=== PATIENT | female | born 1945 | race Caucasian/White ===

== ENCOUNTER 2016-06-15 16:26 | Emergency (ER) | payer MEDICARE, OTHER ==
[~2016-06-15 16:26] MED LIST: ADVI200C5 PO; ATEN50TA2 PO; DOXY20TA4 PO; PANT20TA PO; VITA400C29 PO; VITA500C24 PO
--- NOTE | 2016-06-15 17:37 | REP ---
Chest one-view HISTORY: Chest pain Comparison: 11/10/2012 The lungs are clear. The heart is normal in size. The pulmonary vasculature is normal in appearance. Impression: No acute disease. Signed by Bandar Parekh MD 06/15/2016 05:27 P
[2016-06-15 18:23] LABS: ANION GAP 8 MEQ/L (8-16); BLOOD UREA NITROGEN 17 MG/DL (7-18); CALCIUM LEVEL 8.7 MG/DL (8.8-10.2); CARBON DIOXIDE LEVEL 28 MEQ/L (21-32); CHLORIDE LEVEL 105 MEQ/L (98-107); GLOMERULAR FILTRATION RATE > 60.0 (>39); GLUCOSE, FASTING 111 MG/DL (83-110); POTASSIUM SERUM 3.8 MEQ/L (3.5-5.1); SODIUM LEVEL 141 MEQ/L (136-145)
[2016-06-15 18:33] LABS: BASO % 0.3 % (0.0-1.0); EOS # 0.1 K/mm3 (0.0-0.50); EOS % 1.1 % (0.0-3.0); LARGE UNSTAINED CELL # 0.1 K/mm3 (0.0-0.4); LARGE UNSTAINED CELL % 0.6 % (0.0-4.0); LYMPH # 1.5 K/mm3 (1.5-4.5); LYMPH % 13.1 % (24.0-44.0); MEAN CORPUSCULAR HEMOGLOBIN 28.5 pg (27.0-33.0); MEAN CORPUSCULAR HGB CONC 33.9 g/dl (32.0-36.5); MEAN CORPUSCULAR VOLUME 84.2 fl (80.0-96.0); MONO # 0.4 K/mm3 (0.0-0.8); MONO % 3.4 % (0.0-5.0); NEUTROPHILS # 9.3 K/mm3 (1.8-7.7); NEUTROPHILS % 81.5 % (36.0-66.0); PLATELET COUNT, AUTOMATED 238 k/mm3 (150-450); RED CELL DISTRIBUTION WIDTH 12.2 % (11.5-14.5); WHITE BLOOD COUNT 11.4 K/mm3 (4.0-10.0)
[2016-06-15] MEDS ORDERED: KETOROLAC 30 MG/ML VIAL (J1885) As Ordered ONE (19:10)
--- NOTE | 2016-06-15 22:54 | EDDOCDS ---
Physician Documentation [facility] Name: Ramila Coppola Age: 71 yrs Sex: Female : 1945 Arrival Date: 06/15/2016 Time: 16:26 Bed 8 Private MD: Ricky Cueto Disposition: 06/15 22:37 Critical Care: Critical care not applicable. Disposition: 06/15/16 22:38 Discharged to Home/Self Care. Impression: Chest pain, unspecified. - Condition is Stable. - Discharge Instructions: Nonspecific Chest Pain. - Medication Reconciliation, Local Pharmacy Hours form. - Follow up: Ricky Cueto MD; When: Call to arrange an appointment; Reason: Continuance of care. - Problem is new. - Symptoms have improved. Historical: - Allergies: PENICILLINS (Rash); Tramadol HCl (Vomit); Darvon (Vomit); Morphine (Vomit); Dilaudid (Vomit); - Home Meds: 1. aspirin 81 mg Oral tab 1 tab once daily 2. atenolol 50 mg Oral tab 1 tab 2 times per day - PMHx: Hypercholesterolemia; Hypertension; - PSHx: Cervical Fusion; Left Heart Cath 2015 w/o intervention; - Social history: Smoking status: Patient states was never smoker of tobacco. No barriers to communication noted, The patient speaks fluent French, Speaks appropriately for age. - Family history: Not pertinent. - : The pt / caregiver states he / she is not on anticoagulants. Home medication list is obtained from the patient. - Exposure Risk Screening:: None identified. Vital Signs: 16:28 BP 206 / 91 LA Sitting (auto/reg); Pulse 56; Resp 16; Temp 96.9; Pulse Ox 100% ; Weight cmb 74.84 kg / 164.99 lbs; Height 5 ft. 9 in. (175.26 cm); Pain 5/10; 16:28 BP 169 / 84 RA Sitting (auto/reg); cmb 17:40 BP 160 / 94 (auto/); jc4 17:40 Pulse 56 MON; Pulse Ox 96% ; jc4 17:55 BP 171 / 79 (auto/); jc4 17:55 Pulse 56 MON; Pulse Ox 95% ; jc4 18:00 BP 168 / 81 (auto/); jc4 18:00 Pulse 56 MON; Pulse Ox 97% ; jc4 18:10 BP 154 / 81 (auto/); jc4 18:10 Pulse 54 MON; Pulse Ox 96% ; jc4 18:25 BP 145 / 77 (auto/); jc4 18:25 Pulse 54 MON; Pulse Ox 96% ; jc4 18:40 BP 198 / 80 (auto/); jc4 18:41 Pulse 58 MON; Pulse Ox 99% ; jc4 18:55 BP 150 / 68 (auto/); jc4 18:55 Pulse 58 MON; Pulse Ox 95% ; jc4 19:25 BP 194 / 84 (auto/); ko2 19:25 Pulse 60 MON; ko2 19:40 BP 141 / 65 (auto/); ko2 19:40 Pulse 64 MON; ko2 19:55 BP 150 / 72 (auto/); ko2 19:55 Pulse 60 MON; ko2 20:02 Pulse 62 MON; ko2 20:10 BP 144 / 68 (auto/); ko2 20:25 BP 132 / 72 (auto/); ko2 20:31 Pulse 60 MON; Pulse Ox 95% ; ko2 20:40 BP 137 / 69 (auto/); ko2 20:41 Pulse 62 MON; Pulse Ox 95% ; ko2 20:55 BP 161 / 76 (auto/); ko2 20:55 Pulse 62 MON; Pulse Ox 95% ; ko2 21:09 Pulse 62 MON; Pulse Ox 97% ; ko2 21:10 BP 151 / 77 (auto/); ko2 22:41 BP 169 / 77; Pulse 65; Resp 18; Temp 98.4(TE); Pulse Ox 96% on R/A; Pain 0/10; vicente 16:28 Body Mass Index 24.37 (74.84 kg, 175.26 cm) cmb MDM: 17:02 Airplane Flight Attendant Supervisor/Pulse Ox/q 30 min VS ordered. sd1 17:02 IV Saline Lock ordered. sd1 17:02 Rhythm Strip to chart ordered. sd1 17:02 Undress patient appropriately for examination ordered. sd1 17:03 Basic Metabolic Profile Ordered. EDMS 17:03 CBC with Diff Ordered. EDMS 17:03 Cardiac Injury Profile Ordered. EDMS 17:03 Troponin Ordered. EDMS 17:04 portable chest Ordered. EDMS 17:04 ECG WITH READING ER PHYS+CARDIAG ordered. EDMS 17:44 Misc Head Of Biology Order ordered. bs6 17:44 Repeat EKG (put time details section) ordered. bs6 17:54 Misc Head Of Biology Order complete. lbd 17:55 Repeat EKG (put time details section) complete. lbd 17:55 REGULAR+DIET ordered. EDMS 17:59 ECG WITH READING ER PHYS ordered. EDMS 17:59 CARDIAC MARKER PANEL Ordered. EDMS 18:40 ketorolac 30 mg IVP once ordered. bs6 19:31 Financial registration complete. gjb 21:01 Urine Dip ordered. jul 03:52 Test interpretation: EKG. pc 22:31 Basic Metabolic Profile Reviewed. pc 22:31 CBC with Diff Reviewed. pc 22:31 Cardiac Injury Profile Reviewed. pc 22:31 Troponin Reviewed. pc 22:31 CARDIAC MARKER PANEL Reviewed. pc 22:31 portable chest Reviewed. pc 22:37 Data reviewed: EKG(s), lab test results. Test interpretation: LAB - all labs as ordered pc have been reviewed, interpreted and considered in the overall management of the clinical presentation;. The patient has been re-examined and re-evaluated. The patient's symptoms have resolved after treatment. Disposition: The historical points, examination findings, and any diagnostic results supporting the provided diagnosis, were discussed with the patient or legal guardian. The need for outpatient follow up with the provider listed on their discharge instructions was discussed. They were encouraged to return to [facility], or the nearest ED, if symptoms worsen/persist, or for any other questions/concerns. EC:52 Rate is 60 beats/min. Rhythm is regular, Normal Sinus Rhythm. QRS [place] is Normal. [place] pc interval is normal. QRS interval is normal. QT interval is normal. No Q waves. T waves are Normal. No ST changes noted. Clinical impression: Normal Sinus Rhythm. Point of Care Testing: Urine Dip: 21:06 pH: 6; ; Specific [place]: 1.015; Ketones: Trace; Glucose: 50 mg/dL; Protein: Trace; ko2 Leukocytes: Negative; Nitrite: Negative ; Blood: Small (+); Bilirubin: Negative ; Urobilinogen: Normal Ranges: Administered Medications: 19:19 Drug: ketorolac 30 mg [ketorolac 30 mg/mL (1 mL) injection solution (1 mL)] Route: IVP; ko2 Site: right antecubital; Signatures: Dispatcher [employer] Melo Roth MD MD pc Delaney-Rowland, Sarah, MD MD sd1 Lindsey Sow, Aeronautical Engineering Officer Unit lbd Mathew Orellana RN RN bcj Pete, DOLORES Bell RN, Jennifer, RN RN jc4 Tri Antonio DO DO bs6 Maria Luisa Anderson RN RN prashant2 Callie Ho MTDD
--- NOTE | 2016-06-15 22:55 | EDDOCDS ---
Nurse's Notes [facility] Name: Ramila Coppola Age: 71 yrs Sex: Female : 1945 Arrival Date: 06/15/2016 Time: 16:26 Bed 8 Private MD: Ricky Cueto Diagnosis: Chest pain, unspecified Presentation: 06/15 17:00 Presenting complaint: Patient states: has been feeling dizzy all day - feels like she bcj is going to fall over. no nausea now - was nauseated earlier. having chest tightness and neck tightness. denies diff breathing. 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 Adult Sepsis Screening: The patient does not have new or worsening altered mentation. Patient's respiratory rate is less than 22. Systolic blood pressure is greater than 100. Patient has a qSOFA score of 0- Negative Sepsis Screen. Suicide/Homicide risk assessment- the patient denies having any suicidal and/or homicidal ideations and does not present with any other emotional, behavioral or mental health complaints. Status: Patient is not a director of professional services or dependent. Transition of care: patient was not received from another setting of care. Red Flag criteria, patient assessed and taken directly to a bed. 17:00 Acuity: ROLANDO Level 2 bcj 17:00 Method Of Arrival: Walkin/Carried/Asstd bcj Triage Assessment: 17:05 General: Appears in no apparent distress, comfortable, Behavior is cooperative. Pain: bcj Location: chest Pain currently is 5 out of 10 on a pain scale. Cardiovascular: Chest pain is described as mild, radiates to left arm(s) episodes last > 5 minutes began. Derm: Skin is pink, warm & dry. Historical: - Allergies: PENICILLINS (Rash); Tramadol HCl (Vomit); Darvon (Vomit); Morphine (Vomit); Dilaudid (Vomit); - Home Meds: 1. aspirin 81 mg Oral tab 1 tab once daily 2. atenolol 50 mg Oral tab 1 tab 2 times per day - PMHx: Hypercholesterolemia; Hypertension; - PSHx: Cervical Fusion; Left Heart Cath 2016 w/o intervention; - Social history: Smoking status: Patient states was never smoker of tobacco. No barriers to communication noted, The patient speaks fluent Kyrgyz, Speaks appropriately for age. - Family history: Not pertinent. - : The pt / caregiver states he / she is not on anticoagulants. Home medication list is obtained from the patient. - Exposure Risk Screening:: None identified. Screenin:58 Screening information is obtained from the patient. Fall risk: No risks identified. jc4 Assistance ADL's: requires no assistance with activities of daily living. Abuse/DV Screen: The patient / caregiver reports he/she is: not in a situation that causes fear, pain or injury. Nutritional screening: No deficits noted. Advance Directives: Currently, there is a health care proxy, Sravanthi Rose. There is no active DNR order. There is an active Power of Translational Specialist, Sravanthi Rose, daughter. home support is adequate. Assessment: 18:02 General: Appears in no apparent distress, Behavior is cooperative, pleasant. Pain: jc4 Denies pain. Neurological: Level of Consciousness is awake, alert, Oriented to person, place, time, Reports dizziness, headache. EENT: Oral mucosa is moist. Cardiovascular: Rhythm is sinus bradycardia No ectopy. Chest pain is described as Pain is 5 out of 10 on a pain scale. quality is tightness is located in substernal area radiates Does not radiate. episodes are intermittent. Cardiovascular: Edema is absent. Respiratory: Airway is patent Respiratory effort is even, unlabored, Respiratory pattern is regular, symmetrical, Breath sounds are clear bilaterally. GI: Abdomen is non- distended Bowel sounds present X 4 quads. Abd is soft and non tender X 4 quads. Denies nausea. Derm: Skin is pink, warm & dry. 19:20 General: Appears in no apparent distress, comfortable, Behavior is appropriate for age, ko2 cooperative. Pain: Denies pain. Neurological: Level of Consciousness is awake, alert. Respiratory: Airway is patent Respiratory effort is even, unlabored. Derm: Skin is pink, warm & dry. 20:43 General: Appears in no apparent distress, comfortable, Behavior is appropriate for age, ko2 cooperative. Pain: Location: abdomen. Neurological: Level of Consciousness is awake, alert. Respiratory: Airway is patent Respiratory effort is even, unlabored. Derm: Skin is pink, warm & dry. 22:00 General: Appears in no apparent distress, comfortable, Behavior is appropriate for age, ko2 cooperative. Pain: Denies pain. Neurological: Level of Consciousness is awake, alert, Oriented to person, place, time. Respiratory: Airway is patent Respiratory effort is even, unlabored. Derm: Skin is pink, warm & dry. 22:51 General: Appears in no apparent distress, comfortable, Behavior is appropriate for age, ko2 cooperative. Neurological: Level of Consciousness is awake, alert, Oriented to. Respiratory: Airway is patent Respiratory effort is even, unlabored. Derm: Skin is pink, warm & dry. Vital Signs: 16:28 BP 206 / 91 LA Sitting (auto/reg); Pulse 56; Resp 16; Temp 96.9; Pulse Ox 100% ; Weight cmb 74.84 kg; Height 5 ft. 9 in. (175.26 cm); Pain 5/10; 16:28 BP 169 / 84 RA Sitting (auto/reg); cmb 17:40 BP 160 / 94 (auto/); jc4 17:40 Pulse 56 MON; Pulse Ox 96% ; jc4 17:55 BP 171 / 79 (auto/); jc4 17:55 Pulse 56 MON; Pulse Ox 95% ; jc4 18:00 BP 168 / 81 (auto/); jc4 18:00 Pulse 56 MON; Pulse Ox 97% ; jc4 18:10 BP 154 / 81 (auto/); jc4 18:10 Pulse 54 MON; Pulse Ox 96% ; jc4 18:25 BP 145 / 77 (auto/); jc4 18:25 Pulse 54 MON; Pulse Ox 96% ; jc4 18:40 BP 198 / 80 (auto/); jc4 18:41 Pulse 58 MON; Pulse Ox 99% ; jc4 18:55 BP 150 / 68 (auto/); jc4 18:55 Pulse 58 MON; Pulse Ox 95% ; jc4 19:25 BP 194 / 84 (auto/); ko2 19:25 Pulse 60 MON; ko2 19:40 BP 141 / 65 (auto/); ko2 19:40 Pulse 64 MON; ko2 19:55 BP 150 / 72 (auto/); ko2 19:55 Pulse 60 MON; ko2 20:02 Pulse 62 MON; ko2 20:10 BP 144 / 68 (auto/); ko2 20:25 BP 132 / 72 (auto/); ko2 20:31 Pulse 60 MON; Pulse Ox 95% ; ko2 20:40 BP 137 / 69 (auto/); ko2 20:41 Pulse 62 MON; Pulse Ox 95% ; ko2 20:55 BP 161 / 76 (auto/); ko2 20:55 Pulse 62 MON; Pulse Ox 95% ; ko2 21:09 Pulse 62 MON; Pulse Ox 97% ; ko2 21:10 BP 151 / 77 (auto/); ko2 22:41 BP 169 / 77; Pulse 65; Resp 18; Temp 98.4(TE); Pulse Ox 96% on R/A; Pain 0/10; vicente 16:28 Body Mass Index 24.37 (74.84 kg, 175.26 cm) cmb Vitals: 16:28 Log In Time: June 15, 2016 at 16:26. cmb ED Course: 16:27 Patient visited by Hanna Hu. cmb 16:27 Ricky Cueto is Private Physician. cmb 16:27 Patient moved to Waiting cmb 16:31 Patient moved to Pre RCE cmb 17:00 Ayana Rangel, DOLORES is Primary Nurse. js13 17:00 Patient moved to 8 js13 17:03 Triage Initiated bcj 17:06 Patient visited by Mathew Orellana, DOLORES. bcj 17:18 Tri Antonio DO is PHCP. bs6 17:18 Tre Dia DO is Attending Physician. bs6 17:24 Patient visited by Tri Antonio DO. bs6 17:24 Patient visited by Tri Antonio DO. bs6 17:27 Patient visited by Jenniffer Ha. dem1 17:27 Pt greeted and oriented to ED. Patient advised of names of staff involved in care, [facility] location of call [place], wait times and NPO status. Patient has correct armband on for positive identification. Placed in gown. Bed in low position. Call light in reach. Side rails up X 1. boilermaker central steam plant on. Pulse ox on. NIBP on. 17:27 EKG done. (by ED staff). Reviewed by Tri Antonio DO. dem1 17:54 Basic Metabolic Profile Sent. jc4 17:54 CBC with Diff Sent. jc4 17:54 Cardiac Injury Profile Sent. jc4 17:54 Troponin Sent. jc4 17:59 The patient / caregiver is instructed regarding the plan of care and ED course. jc4 17:59 Inserted saline lock: 20 gauge in right antecubital area The patient tolerated the jc4 procedure well. 18:06 Patient visited by Ayana Rangel RN. jc4 18:10 portable chest Returned. EDMS 19:02 Primary Nurse role handed off by Ayana Rangel RN jc4 19:03 Attending Physician role handed off by Tre Dia DO pc 19:03 Melo Vergara MD is Attending Physician. pc 19:03 Patient visited by Melo Vergara MD. pc 19:06 Maria Luisa Anderson RN is Primary Nurse. ko2 19:19 Patient visited by Maria Luisa Anderson RN. ko2 20:12 Patient visited by Maria Luisa Anderson RN. ko2 20:43 Patient visited by Maria Luisa Anderson RN. ko2 20:44 Patient visited by Maria Luisa Anderson RN. ko2 21:43 Patient visited by Maria Luisa Anderson RN. ko2 21:52 Patient visited by Velia Mack PCA. vicente 21:52 CARDIAC MARKER PANEL Sent. vicente 21:52 EKG done. (by ED staff). Reviewed by Melo Vergara MD. vicente 22:38 Ricky Cueto MD is Referral Physician. pc 22:41 Patient visited by Velia Mack PCA. ivcente 22:52 Discontinued lock intact, bleeding controlled, pressure dressing applied, No ko2 redness/swelling at site. No procedures done that require assistance. Administered Medications: 19:19 Drug: ketorolac 30 mg [ketorolac 30 mg/mL (1 mL) injection solution (1 mL)] Route: IVP; ko2 Site: right antecubital; Point of Care Testing: Urine Dip: 21:06 pH: 6; ; Specific [place]: 1.015; Ketones: Trace; Glucose: 50 mg/dL; Protein: Trace; ko2 Leukocytes: Negative; Nitrite: Negative ; Blood: Small (+); Bilirubin: Negative ; Urobilinogen: Normal Ranges: Order Results: Lab Order: Basic Metabolic Profile; SPEC'M 06/15/16 17:52 Test: GLUCOSE, FASTING; Value: 111; Range: 83-110; Abnormal: Above high normal; Units: MG/DL; Status: F Test: BLOOD UREA NITROGEN; Value: 17; Range: 7-18; Units: MG/DL; Status: F Test: CREATININE FOR GFR; Value: 0.80; Range: 0.55-1.02; Units: MG/DL; Status: F Test: GLOMERULAR FILTRATION RATE; Value: > 60.0; Range: >39; Status: F Test: SODIUM LEVEL; Value: 141; Range: 136-145; Units: MEQ/L; Status: F Test: POTASSIUM SERUM; Value: 3.8; Range: 3.5-5.1; Units: MEQ/L; Status: F Test: CHLORIDE LEVEL; Value: 105; Range: 98-107; Units: MEQ/L; Status: F Test: CARBON DIOXIDE LEVEL; Value: 28; Range: 21-32; Units: MEQ/L; Status: F Test: ANION GAP; Value: 8; Range: 8-16; Units: MEQ/L; Status: F Test: CALCIUM LEVEL; Value: 8.7; Range: 8.8-10.2; Abnormal: Below low normal; Units: MG/DL; Status: F Test Note: ; Units are mL/min/1.73 m2 Chronic Kidney Disease Staging per NKF: Stage I & II GFR >=60 Normal to Mildly Decreased Stage III GFR 30-59 Moderately Decreased Stage IV GFR 15-29 Severely Decreased Stage V GFR <15 Very Little GFR Left ESRD GFR <15 on OVER SHORT AND DAMAGE CLERK Lab Order: CBC with Diff; SPEC'M 06/15/16 17:52 Test: WHITE BLOOD COUNT; Value: 11.4; Range: 4.0-10.0; Abnormal: Above high normal; Units: K/mm3; Status: F Test: RED BLOOD COUNT; Value: 4.20; Range: 4.00-5.40; Units: M/mm3; Status: F Test: HEMOGLOBIN; Value: 12.0; Range: 12.0-16.0; Units: g/dl; Status: F Test: HEMATOCRIT; Value: 35.4; Range: 36.0-47.0; Abnormal: Below low normal; Units: %; Status: F Test: MEAN CORPUSCULAR VOLUME; Value: 84.2; Range: 80.0-96.0; Units: fl; Status: F Test: MEAN CORPUSCULAR HEMOGLOBIN; Value: 28.5; Range: 27.0-33.0; Units: pg; Status: F Test: MEAN CORPUSCULAR HGB CONC; Value: 33.9; Range: 32.0-36.5; Units: g/dl; Status: F Test: RED CELL DISTRIBUTION WIDTH; Value: 12.2; Range: 11.5-14.5; Units: %; Status: F Test: PLATELET COUNT, AUTOMATED; Value: 238; Range: 150-450; Units: k/mm3; Status: F Test: NEUTROPHILS %; Value: 81.5; Range: 36.0-66.0; Abnormal: Above high normal; Units: %; Status: F Test: LYMPH %; Value: 13.1; Range: 24.0-44.0; Abnormal: Below low normal; Units: %; Status: F Test: MONO %; Value: 3.4; Range: 0.0-5.0; Units: %; Status: F Test: EOS %; Value: 1.1; Range: 0.0-3.0; Units: %; Status: F Test: BASO %; Value: 0.3; Range: 0.0-1.0; Units: %; Status: F Test: LARGE UNSTAINED CELL %; Value: 0.6; Range: 0.0-4.0; Units: %; Status: F Test: NEUTROPHILS #; Value: 9.3; Range: 1.8-7.7; Abnormal: Above high normal; Units: K/mm3; Status: F Test: LYMPH #; Value: 1.5; Range: 1.5-4.5; Units: K/mm3; Status: F Test: MONO #; Value: 0.4; Range: 0.0-0.8; Units: K/mm3; Status: F Test: EOS #; Value: 0.1; Range: 0.0-0.50; Units: K/mm3; Status: F Test: BASO #; Value: 0.0; Range: 0.0-0.2; Units: K/mm3; Status: F Test: LARGE UNSTAINED CELL #; Value: 0.1; Range: 0.0-0.4; Units: K/mm3; Status: F Lab Order: Cardiac Injury Profile; SPEC'M 06/15/16 17:52 Test: CPK CREATINE PHOSPHOKINASE; Value: 104; Range: 26-192; Units: U/L; Status: F Test: CK-MB VALUE MASS; Value: 1.7; Range: 0.0-3.6; Units: NG/ML; Status: F Test: MB/CK RELATIVE INDEX; Value: 1.63; Range: < OR =4; Status: F Test Note: ; DIAGNOSIS CRITERIA MMB ng/ml Relative Index (RI) NON-AMI < or = 5 N/A KAUFMAN ZONE > 5 < or = 4 AMI > 5 > 4 Lab Order: Troponin; SPEC'M 06/15/16 17:52 Test: TROPONIN I; Value: < 0.02; Range: < 0.10; Units: NG/ML; Status: F Test Note: ; Troponin I Reference Interval for [place] LOCI: 99th Percentile= 0.00-0.045 ng/ml Risk Stratification: <= 0.10 ng/ml Decreased Risk for Adverse Clinical Events. 0.10-1.50 ng/ml Increased Risk for Adverse Clinical Events. Evaluation of additional criterion and/or repeat testing in 2-6 hours is suggested to rule out myocardial damage. >= 1.50 ng/ml Indicative of Myocardial Injury. Lab Order: CARDIAC MARKER PANEL; SPEC'M 06/15/16 21:57 Test: CPK CREATINE PHOSPHOKINASE; Value: 89; Range: 26-192; Units: U/L; Status: F Test: CK-MB VALUE MASS; Value: 1.1; Range: 0.0-3.6; Units: NG/ML; Status: F Test: MB/CK RELATIVE INDEX; Value: 1.23; Range: < OR =4; Status: F Test: TROPONIN I; Value: < 0.02; Range: < 0.10; Units: NG/ML; Status: F Test Note: ; DIAGNOSIS CRITERIA MMB ng/ml Relative Index (RI) NON-AMI < or = 5 N/A KAUFMAN ZONE > 5 < or = 4 AMI > 5 > 4 Radiology Order: portable chest Test: portable chest REASON FOR EXAMINATION: Chest Pain; Chest one-view; ; HISTORY: Chest pain; ; Comparison: 11/10/2012; ; The lungs are clear. The heart is normal in size. The pulmonary vasculature is; normal in appearance.; ; Impression: No acute disease.; ; ; Signed by; Bandar Parekh MD 06/15/2016 05:27 P; Outcome: 22:38 Discharge ordered by Provider. pc 22:52 Discharge Assessment: Patient awake, alert and oriented x 3. No cognitive and/or ko2 functional deficits noted. Patient verbalized understanding of disposition instructions. patient administered narcotics - no. The following High Risk Discharge criteria are identified: None. Discharged to home ambulatory, with family. Condition: stable. Discharge instructions given to patient, Instructed on discharge instructions, follow up and referral plans. Demonstrated understanding of instructions, Pt was receptive of discharge instructions/ teaching. No special radiology studies were completed. Property sent home with patient. 22:54 Patient left the ED. ko2 Signatures: Dispatcher [employer] EDMS Melo Vergara MD MD pc Johnson, Bruce, RN RN Ayana Vlaencia, RN RN jc4 Velia Mack, SPINE NURSE SPINE NURSE Jenniffer Ricci1 Ayana Mcknight,RN RN js13 Hanna Hu Brogan, DO DO bs6 Maria Luisa Anderson,RN RN ko2 MTDD
--- NOTE | 2016-06-16 19:48 | ECGEPIP ---
Stationary ECG Study [facility] - ED Test Date: 2016-06-15 Pat Name: IVY PALACIOS Department: Room: - Gender: F Dressing Room Porter: nancy : 1945 Requested By: Kinsey Mata Order Number: [id number] Reading MD: Kinsey Mata Measurements Intervals [place] Rate: 66 P: 11 CT: 144 QRS: 11 QRSD: 79 T: 25 QT: 411 QTc: 431 Interpretive Statements SINUS RHYTHM SIMILAR 09/10/11 Electronically Signed On 06-16-2016 19:47:45 EST by Kinsey Mata
--- NOTE | 2016-06-16 19:51 | ECGEPIP ---
Stationary ECG Study [facility] - ED Test Date: 2016-06-15 Pat Name: IVY PALACIOS Department: Room: - Gender: F Telemarketer: QuirogaB: 1945 Requested By: ARACELY ARIAS Order Number: [id number] Reading MD: Kinsey Mata Measurements Intervals [place] Rate: 60 P: 0 VA: 120 QRS: 11 QRSD: 92 T: 36 QT: 446 QTc: 449 Interpretive Statements SINUS RHYTHM SIMILAR 06/15/16 17:11 Electronically Signed On 06-16-2016 19:50:50 EST by Kinsey Mata
--- NOTE | 2016-06-17 23:54 | EDDOCDS ---
Physician Documentation [facility] Name: Ramila Coppola Age: 71 yrs Sex: Female : 1945 Arrival Date: 06/15/2016 Time: 16:26 Bed 8 Private MD: Ricky Cueto Disposition: 06/15 22:37 Critical Care: Critical care not applicable. Disposition: 06/15/16 22:38 Discharged to Home/Self Care. Impression: Chest pain, unspecified. - Condition is Stable. - Discharge Instructions: Nonspecific Chest Pain. - Medication Reconciliation, Local Pharmacy Hours form. - Follow up: Ricky Cueto MD; When: Call to arrange an appointment; Reason: Continuance of care. - Problem is new. - Symptoms have improved. Historical: - Allergies: PENICILLINS (Rash); Tramadol HCl (Vomit); Darvon (Vomit); Morphine (Vomit); Dilaudid (Vomit); - Home Meds: 1. aspirin 81 mg Oral tab 1 tab once daily 2. atenolol 50 mg Oral tab 1 tab 2 times per day - PMHx: Hypercholesterolemia; Hypertension; - PSHx: Cervical Fusion; Left Heart Cath 2015 w/o intervention; - Social history: Smoking status: Patient states was never smoker of tobacco. No barriers to communication noted, The patient speaks fluent Lithuanian, Speaks appropriately for age. - Family history: Not pertinent. - : The pt / caregiver states he / she is not on anticoagulants. Home medication list is obtained from the patient. - Exposure Risk Screening:: None identified. Vital Signs: 16:28 BP 206 / 91 LA Sitting (auto/reg); Pulse 56; Resp 16; Temp 96.9; Pulse Ox 100% ; Weight cmb 74.84 kg / 164.99 lbs; Height 5 ft. 9 in. (175.26 cm); Pain 5/10; 16:28 BP 169 / 84 RA Sitting (auto/reg); cmb 17:40 BP 160 / 94 (auto/); jc4 17:40 Pulse 56 MON; Pulse Ox 96% ; jc4 17:55 BP 171 / 79 (auto/); jc4 17:55 Pulse 56 MON; Pulse Ox 95% ; jc4 18:00 BP 168 / 81 (auto/); jc4 18:00 Pulse 56 MON; Pulse Ox 97% ; jc4 18:10 BP 154 / 81 (auto/); jc4 18:10 Pulse 54 MON; Pulse Ox 96% ; jc4 18:25 BP 145 / 77 (auto/); jc4 18:25 Pulse 54 MON; Pulse Ox 96% ; jc4 18:40 BP 198 / 80 (auto/); jc4 18:41 Pulse 58 MON; Pulse Ox 99% ; jc4 18:55 BP 150 / 68 (auto/); jc4 18:55 Pulse 58 MON; Pulse Ox 95% ; jc4 19:25 BP 194 / 84 (auto/); ko2 19:25 Pulse 60 MON; ko2 19:40 BP 141 / 65 (auto/); ko2 19:40 Pulse 64 MON; ko2 19:55 BP 150 / 72 (auto/); ko2 19:55 Pulse 60 MON; ko2 20:02 Pulse 62 MON; ko2 20:10 BP 144 / 68 (auto/); ko2 20:25 BP 132 / 72 (auto/); ko2 20:31 Pulse 60 MON; Pulse Ox 95% ; ko2 20:40 BP 137 / 69 (auto/); ko2 20:41 Pulse 62 MON; Pulse Ox 95% ; ko2 20:55 BP 161 / 76 (auto/); ko2 20:55 Pulse 62 MON; Pulse Ox 95% ; ko2 21:09 Pulse 62 MON; Pulse Ox 97% ; ko2 21:10 BP 151 / 77 (auto/); ko2 22:41 BP 169 / 77; Pulse 65; Resp 18; Temp 98.4(TE); Pulse Ox 96% on R/A; Pain 0/10; vicente 16:28 Body Mass Index 24.37 (74.84 kg, 175.26 cm) cmb MDM: 17:02 Marine Consultant/Pulse Ox/q 30 min VS ordered. sd1 17:02 IV Saline Lock ordered. sd1 17:02 Rhythm Strip to chart ordered. sd1 17:02 Undress patient appropriately for examination ordered. sd1 17:03 Basic Metabolic Profile Ordered. EDMS 17:03 CBC with Diff Ordered. EDMS 17:03 Cardiac Injury Profile Ordered. EDMS 17:03 Troponin Ordered. EDMS 17:04 portable chest Ordered. EDMS 17:04 ECG WITH READING ER PHYS+CARDIAG ordered. EDMS 17:44 Misc Certified Art Therapist Order ordered. bs6 17:44 Repeat EKG (put time details section) ordered. bs6 17:54 Misc Certified Art Therapist Order complete. lbd 17:55 Repeat EKG (put time details section) complete. lbd 17:55 REGULAR+DIET ordered. EDMS 17:59 ECG WITH READING ER PHYS ordered. EDMS 17:59 CARDIAC MARKER PANEL Ordered. EDMS 18:40 ketorolac 30 mg IVP once ordered. bs6 19:31 Financial registration complete. gjb 21:01 Urine Dip ordered. jul 03:52 Test interpretation: EKG. pc 22:31 Basic Metabolic Profile Reviewed. pc 22:31 CBC with Diff Reviewed. pc 22:31 Cardiac Injury Profile Reviewed. pc 22:31 Troponin Reviewed. pc 22:31 CARDIAC MARKER PANEL Reviewed. pc 22:31 portable chest Reviewed. pc 22:37 Data reviewed: EKG(s), lab test results. Test interpretation: LAB - all labs as ordered pc have been reviewed, interpreted and considered in the overall management of the clinical presentation;. The patient has been re-examined and re-evaluated. The patient's symptoms have resolved after treatment. Disposition: The historical points, examination findings, and any diagnostic results supporting the provided diagnosis, were discussed with the patient or legal guardian. The need for outpatient follow up with the provider listed on their discharge instructions was discussed. They were encouraged to return to [facility], or the nearest ED, if symptoms worsen/persist, or for any other questions/concerns. 06/16 00:12 [facility] [place] was scanned into [employer] and attached to record. gjb 11:06 T-Sheet-- Draft Copy was scanned into [employer] and attached to record. gb 11:06 ECG/EKG was scanned into [employer] and attached to record. gb 11:06 Trend VS was scanned into [employer] and attached to record. gb EC/03 21:52 Rate is 60 beats/min. Rhythm is regular, Normal Sinus Rhythm. QRS [place] is Normal. IA pc interval is normal. QRS interval is normal. QT interval is normal. No Q waves. T waves are Normal. No ST changes noted. Clinical impression: Normal Sinus Rhythm. Point of Care Testing: Urine Dip: 21:06 pH: 6; ; Specific [place]: 1.015; Ketones: Trace; Glucose: 50 mg/dL; Protein: Trace; ko2 Leukocytes: Negative; Nitrite: Negative ; Blood: Small (+); Bilirubin: Negative ; Urobilinogen: Normal Ranges: Administered Medications: 19:19 Drug: ketorolac 30 mg [ketorolac 30 mg/mL (1 mL) injection solution (1 mL)] Route: IVP; ko2 Site: right antecubital; Signatures: Dispatcher [employer] Melo Roth MD MD pc Delaney-Rowland, Sarah, MD MD sd1 Lindsey Sow, Calender Let Off Helper Unit lbd Mathew Orellana, RN RN Lia Alfred, RN RN Summer Cordova, Rafiq Reg Ayana Hernandez, RN RN jc4 Tri Antonio, DO SANCHEZ bs6 Maria Luisa Anderson,RN RN prashant2 Callie Ho The chart was reviewed and I authenticate all verbal orders and agree with the evaluation and treatment provided.Attachments: 06/16 00:12 [facility] [place] Agreement kris 11:06 T-Sheet-- Draft Copy gb 11:06 ECG/EKG Chart Complete MTDD
--- NOTE | 2016-06-17 23:54 | EDDOCDS ---
Nurse's Notes [facility] Name: Ramila Coppola Age: 71 yrs Sex: Female : 1945 Arrival Date: 06/15/2016 Time: 16:26 Bed 8 Private MD: Ricky Cueto Diagnosis: Chest pain, unspecified Presentation: 06/15 17:00 Presenting complaint: Patient states: has been feeling dizzy all day - feels like she bcj is going to fall over. no nausea now - was nauseated earlier. having chest tightness and neck tightness. denies diff breathing. 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 Adult Sepsis Screening: The patient does not have new or worsening altered mentation. Patient's respiratory rate is less than 22. Systolic blood pressure is greater than 100. Patient has a qSOFA score of 0- Negative Sepsis Screen. Suicide/Homicide risk assessment- the patient denies having any suicidal and/or homicidal ideations and does not present with any other emotional, behavioral or mental health complaints. Status: Patient is not a office services assistant or dependent. Transition of care: patient was not received from another setting of care. Red Flag criteria, patient assessed and taken directly to a bed. 17:00 Acuity: ROLANDO Level 2 bcj 17:00 Method Of Arrival: Walkin/Carried/Asstd bcj Triage Assessment: 17:05 General: Appears in no apparent distress, comfortable, Behavior is cooperative. Pain: bcj Location: chest Pain currently is 5 out of 10 on a pain scale. Cardiovascular: Chest pain is described as mild, radiates to left arm(s) episodes last > 5 minutes began. Derm: Skin is pink, warm & dry. Historical: - Allergies: PENICILLINS (Rash); Tramadol HCl (Vomit); Darvon (Vomit); Morphine (Vomit); Dilaudid (Vomit); - Home Meds: 1. aspirin 81 mg Oral tab 1 tab once daily 2. atenolol 50 mg Oral tab 1 tab 2 times per day - PMHx: Hypercholesterolemia; Hypertension; - PSHx: Cervical Fusion; Left Heart Cath 2016 w/o intervention; - Social history: Smoking status: Patient states was never smoker of tobacco. No barriers to communication noted, The patient speaks fluent Kosovan, Speaks appropriately for age. - Family history: Not pertinent. - : The pt / caregiver states he / she is not on anticoagulants. Home medication list is obtained from the patient. - Exposure Risk Screening:: None identified. Screenin:58 Screening information is obtained from the patient. Fall risk: No risks identified. jc4 Assistance ADL's: requires no assistance with activities of daily living. Abuse/DV Screen: The patient / caregiver reports he/she is: not in a situation that causes fear, pain or injury. Nutritional screening: No deficits noted. Advance Directives: Currently, there is a health care proxy, Sravanthi Rose. There is no active DNR order. There is an active Power of Spa Consultant, Sravanthi Rose, daughter. home support is adequate. Assessment: 18:02 General: Appears in no apparent distress, Behavior is cooperative, pleasant. Pain: jc4 Denies pain. Neurological: Level of Consciousness is awake, alert, Oriented to person, place, time, Reports dizziness, headache. EENT: Oral mucosa is moist. Cardiovascular: Rhythm is sinus bradycardia No ectopy. Chest pain is described as Pain is 5 out of 10 on a pain scale. quality is tightness is located in substernal area radiates Does not radiate. episodes are intermittent. Cardiovascular: Edema is absent. Respiratory: Airway is patent Respiratory effort is even, unlabored, Respiratory pattern is regular, symmetrical, Breath sounds are clear bilaterally. GI: Abdomen is non- distended Bowel sounds present X 4 quads. Abd is soft and non tender X 4 quads. Denies nausea. Derm: Skin is pink, warm & dry. 19:20 General: Appears in no apparent distress, comfortable, Behavior is appropriate for age, ko2 cooperative. Pain: Denies pain. Neurological: Level of Consciousness is awake, alert. Respiratory: Airway is patent Respiratory effort is even, unlabored. Derm: Skin is pink, warm & dry. 20:43 General: Appears in no apparent distress, comfortable, Behavior is appropriate for age, ko2 cooperative. Pain: Location: abdomen. Neurological: Level of Consciousness is awake, alert. Respiratory: Airway is patent Respiratory effort is even, unlabored. Derm: Skin is pink, warm & dry. 22:00 General: Appears in no apparent distress, comfortable, Behavior is appropriate for age, ko2 cooperative. Pain: Denies pain. Neurological: Level of Consciousness is awake, alert, Oriented to person, place, time. Respiratory: Airway is patent Respiratory effort is even, unlabored. Derm: Skin is pink, warm & dry. 22:51 General: Appears in no apparent distress, comfortable, Behavior is appropriate for age, ko2 cooperative. Neurological: Level of Consciousness is awake, alert, Oriented to. Respiratory: Airway is patent Respiratory effort is even, unlabored. Derm: Skin is pink, warm & dry. Vital Signs: 16:28 BP 206 / 91 LA Sitting (auto/reg); Pulse 56; Resp 16; Temp 96.9; Pulse Ox 100% ; Weight cmb 74.84 kg; Height 5 ft. 9 in. (175.26 cm); Pain 5/10; 16:28 BP 169 / 84 RA Sitting (auto/reg); cmb 17:40 BP 160 / 94 (auto/); jc4 17:40 Pulse 56 MON; Pulse Ox 96% ; jc4 17:55 BP 171 / 79 (auto/); jc4 17:55 Pulse 56 MON; Pulse Ox 95% ; jc4 18:00 BP 168 / 81 (auto/); jc4 18:00 Pulse 56 MON; Pulse Ox 97% ; jc4 18:10 BP 154 / 81 (auto/); jc4 18:10 Pulse 54 MON; Pulse Ox 96% ; jc4 18:25 BP 145 / 77 (auto/); jc4 18:25 Pulse 54 MON; Pulse Ox 96% ; jc4 18:40 BP 198 / 80 (auto/); jc4 18:41 Pulse 58 MON; Pulse Ox 99% ; jc4 18:55 BP 150 / 68 (auto/); jc4 18:55 Pulse 58 MON; Pulse Ox 95% ; jc4 19:25 BP 194 / 84 (auto/); ko2 19:25 Pulse 60 MON; ko2 19:40 BP 141 / 65 (auto/); ko2 19:40 Pulse 64 MON; ko2 19:55 BP 150 / 72 (auto/); ko2 19:55 Pulse 60 MON; ko2 20:02 Pulse 62 MON; ko2 20:10 BP 144 / 68 (auto/); ko2 20:25 BP 132 / 72 (auto/); ko2 20:31 Pulse 60 MON; Pulse Ox 95% ; ko2 20:40 BP 137 / 69 (auto/); ko2 20:41 Pulse 62 MON; Pulse Ox 95% ; ko2 20:55 BP 161 / 76 (auto/); ko2 20:55 Pulse 62 MON; Pulse Ox 95% ; ko2 21:09 Pulse 62 MON; Pulse Ox 97% ; ko2 21:10 BP 151 / 77 (auto/); ko2 22:41 BP 169 / 77; Pulse 65; Resp 18; Temp 98.4(TE); Pulse Ox 96% on R/A; Pain 0/10; vicente 16:28 Body Mass Index 24.37 (74.84 kg, 175.26 cm) cmb Vitals: 16:28 Log In Time: June 15, 2016 at 16:26. cmb ED Course: 16:27 Patient visited by Hanna Hu. cmb 16:27 Ricky Cueto is Private Physician. cmb 16:27 Patient moved to Waiting cmb 16:31 Patient moved to Pre RCE cmb 17:00 Ayana Rangel, DOLORES is Primary Nurse. js13 17:00 Patient moved to 8 js13 17:03 Triage Initiated bcj 17:06 Patient visited by Mathew Orellana, DOLORES. bcj 17:18 Aracely Arias DO is PHCP. bs6 17:18 Tre Dia DO is Attending Physician. bs6 17:24 Patient visited by Aracely Arias DO. bs6 17:24 Patient visited by Aracely Arias DO. bs6 17:27 Patient visited by Jenniffer Ha. dem1 17:27 Pt greeted and oriented to ED. Patient advised of names of staff involved in care, [facility] location of call [place], wait times and NPO status. Patient has correct armband on for positive identification. Placed in gown. Bed in low position. Call light in reach. Side rails up X 1. patient monitor on. Pulse ox on. NIBP on. 17:27 EKG done. (by ED staff). Reviewed by Aracely Arias DO. dem1 17:54 Basic Metabolic Profile Sent. jc4 17:54 CBC with Diff Sent. jc4 17:54 Cardiac Injury Profile Sent. jc4 17:54 Troponin Sent. jc4 17:59 The patient / caregiver is instructed regarding the plan of care and ED course. jc4 17:59 Inserted saline lock: 20 gauge in right antecubital area The patient tolerated the jc4 procedure well. 18:06 Patient visited by Ayana Rangel RN. jc4 18:10 portable chest Returned. EDMS 19:02 Primary Nurse role handed off by Ayana Rangel RN jc4 19:03 Attending Physician role handed off by Tre Dia DO pc 19:03 Melo Vergara MD is Attending Physician. pc 19:03 Patient visited by Melo Vergara MD. pc 19:06 Maria Luisa Anderson RN is Primary Nurse. ko2 19:19 Patient visited by Maria Luisa Anderson RN. ko2 20:12 Patient visited by Maria Luisa Anderson RN. ko2 20:43 Patient visited by Maria Luisa Anderson RN. ko2 20:44 Patient visited by Maria Luisa Anderson RN. ko2 21:43 Patient visited by Maria Luisa Anderson RN. ko2 21:52 Patient visited by Velia Mack PCA. vicente 21:52 CARDIAC MARKER PANEL Sent. vicente 21:52 EKG done. (by ED staff). Reviewed by Melo Vergara MD. vicente 22:38 Ricky Cueto MD is Referral Physician. pc 22:41 Patient visited by Velia Mack PCA. vicente 22:52 Discontinued lock intact, bleeding controlled, pressure dressing applied, No ko2 redness/swelling at site. No procedures done that require assistance. 06/16 00:12 [facility] Payment Agreement was scanned into [employer] and attached to record. gjb 11:06 T-Sheet-- Draft Copy was scanned into [employer] and attached to record. gb 11:06 ECG/EKG was scanned into [employer] and attached to record. gb 11:06 Trend VS was scanned into [employer] and attached to record. gb 20:05 EKG-ADULT Returned. EDMS 20:05 ECG WITH READING ER PHYS Returned. EDMS Administered Medications: 06/15 19:19 Drug: ketorolac 30 mg [ketorolac 30 mg/mL (1 mL) injection solution (1 mL)] Route: IVP; ko2 Site: right antecubital; Attachments: 11:06 Trend VS gb Point of Care Testing: Urine Dip: 06/15 21:06 pH: 6; ; Specific [place]: 1.015; Ketones: Trace; Glucose: 50 mg/dL; Protein: Trace; ko2 Leukocytes: Negative; Nitrite: Negative ; Blood: Small (+); Bilirubin: Negative ; Urobilinogen: Normal Ranges: Order Results: Lab Order: Basic Metabolic Profile; SPEC'M 06/15/16 17:52 Test: GLUCOSE, FASTING; Value: 111; Range: 83-110; Abnormal: Above high normal; Units: MG/DL; Status: F Test: BLOOD UREA NITROGEN; Value: 17; Range: 7-18; Units: MG/DL; Status: F Test: CREATININE FOR GFR; Value: 0.80; Range: 0.55-1.02; Units: MG/DL; Status: F Test: GLOMERULAR FILTRATION RATE; Value: > 60.0; Range: >39; Status: F Test: SODIUM LEVEL; Value: 141; Range: 136-145; Units: MEQ/L; Status: F Test: POTASSIUM SERUM; Value: 3.8; Range: 3.5-5.1; Units: MEQ/L; Status: F Test: CHLORIDE LEVEL; Value: 105; Range: 98-107; Units: MEQ/L; Status: F Test: CARBON DIOXIDE LEVEL; Value: 28; Range: 21-32; Units: MEQ/L; Status: F Test: ANION GAP; Value: 8; Range: 8-16; Units: MEQ/L; Status: F Test: CALCIUM LEVEL; Value: 8.7; Range: 8.8-10.2; Abnormal: Below low normal; Units: MG/DL; Status: F Test Note: ; Units are mL/min/1.73 m2 Chronic Kidney Disease Staging per NKF: Stage I & II GFR >=60 Normal to Mildly Decreased Stage III GFR 30-59 Moderately Decreased Stage IV GFR 15-29 Severely Decreased Stage V GFR <15 Very Little GFR Left ESRD GFR <15 on RADIOLOGY SCHEDULER Lab Order: CBC with Diff; SPEC'M 06/15/16 17:52 Test: WHITE BLOOD COUNT; Value: 11.4; Range: 4.0-10.0; Abnormal: Above high normal; Units: K/mm3; Status: F Test: RED BLOOD COUNT; Value: 4.20; Range: 4.00-5.40; Units: M/mm3; Status: F Test: HEMOGLOBIN; Value: 12.0; Range: 12.0-16.0; Units: g/dl; Status: F Test: HEMATOCRIT; Value: 35.4; Range: 36.0-47.0; Abnormal: Below low normal; Units: %; Status: F Test: MEAN CORPUSCULAR VOLUME; Value: 84.2; Range: 80.0-96.0; Units: fl; Status: F Test: MEAN CORPUSCULAR HEMOGLOBIN; Value: 28.5; Range: 27.0-33.0; Units: pg; Status: F Test: MEAN CORPUSCULAR HGB CONC; Value: 33.9; Range: 32.0-36.5; Units: g/dl; Status: F Test: RED CELL DISTRIBUTION WIDTH; Value: 12.2; Range: 11.5-14.5; Units: %; Status: F Test: PLATELET COUNT, AUTOMATED; Value: 238; Range: 150-450; Units: k/mm3; Status: F Test: NEUTROPHILS %; Value: 81.5; Range: 36.0-66.0; Abnormal: Above high normal; Units: %; Status: F Test: LYMPH %; Value: 13.1; Range: 24.0-44.0; Abnormal: Below low normal; Units: %; Status: F Test: MONO %; Value: 3.4; Range: 0.0-5.0; Units: %; Status: F Test: EOS %; Value: 1.1; Range: 0.0-3.0; Units: %; Status: F Test: BASO %; Value: 0.3; Range: 0.0-1.0; Units: %; Status: F Test: LARGE UNSTAINED CELL %; Value: 0.6; Range: 0.0-4.0; Units: %; Status: F Test: NEUTROPHILS #; Value: 9.3; Range: 1.8-7.7; Abnormal: Above high normal; Units: K/mm3; Status: F Test: LYMPH #; Value: 1.5; Range: 1.5-4.5; Units: K/mm3; Status: F Test: MONO #; Value: 0.4; Range: 0.0-0.8; Units: K/mm3; Status: F Test: EOS #; Value: 0.1; Range: 0.0-0.50; Units: K/mm3; Status: F Test: BASO #; Value: 0.0; Range: 0.0-0.2; Units: K/mm3; Status: F Test: LARGE UNSTAINED CELL #; Value: 0.1; Range: 0.0-0.4; Units: K/mm3; Status: F Lab Order: Cardiac Injury Profile; [facility] 06/15/16 17:52 Test: CPK CREATINE PHOSPHOKINASE; Value: 104; Range: 26-192; Units: U/L; Status: F Test: CK-MB VALUE MASS; Value: 1.7; Range: 0.0-3.6; Units: NG/ML; Status: F Test: MB/CK RELATIVE INDEX; Value: 1.63; Range: < OR =4; Status: F Test Note: ; DIAGNOSIS CRITERIA MMB ng/ml Relative Index (RI) NON-AMI < or = 5 N/A KAUFMAN ZONE > 5 < or = 4 AMI > 5 > 4 Lab Order: Troponin; [facility]' 06/15/16 17:52 Test: TROPONIN I; Value: < 0.02; Range: < 0.10; Units: NG/ML; Status: F Test Note: ; Troponin I Reference Interval for [facility] LOCI: 99th Percentile= 0.00-0.045 ng/ml Risk Stratification: <= 0.10 ng/ml Decreased Risk for Adverse Clinical Events. 0.10-1.50 ng/ml Increased Risk for Adverse Clinical Events. Evaluation of additional criterion and/or repeat testing in 2-6 hours is suggested to rule out myocardial damage. >= 1.50 ng/ml Indicative of Myocardial Injury. Lab Order: CARDIAC MARKER PANEL; [facility] 06/15/16 21:57 Test: CPK CREATINE PHOSPHOKINASE; Value: 89; Range: 26-192; Units: U/L; Status: F Test: CK-MB VALUE MASS; Value: 1.1; Range: 0.0-3.6; Units: NG/ML; Status: F Test: MB/CK RELATIVE INDEX; Value: 1.23; Range: < OR =4; Status: F Test: TROPONIN I; Value: < 0.02; Range: < 0.10; Units: NG/ML; Status: F Test Note: ; DIAGNOSIS CRITERIA MMB ng/ml Relative Index (RI) NON-AMI < or = 5 N/A KAUFMAN ZONE > 5 < or = 4 AMI > 5 > 4 Radiology Order: portable chest Test: portable chest REASON FOR EXAMINATION: Chest Pain; Chest one-view; ; HISTORY: Chest pain; ; Comparison: 11/10/2012; ; The lungs are clear. The heart is normal in size. 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; : 1945 Requested By: Kinsey Mata; Order Number: [id number] Reading MD: Kinsey Mata; Measurements; Intervals [place]; Rate: 66 P: 11; GA: 144 QRS: 11; QRSD: 79 T: 25; QT: 411; QTc: 431; Interpretive Statements; SINUS RHYTHM; SIMILAR 09/10/11; Electronically Signed On 06-16-2016 19:47:45 EST by Kinsey Mata; Radiology Order: ECG WITH READING ER PHYS Test: ECG WITH READING ER PHYS REASON FOR EXAMINATION: CHEST TIGHTNESS (REPEAT EKG AT 2145); Stationary ECG Study; [facility] ED; ; Test Date: 2016-06-15; Pat Name: RAMILA COPPOLA Department:; Room: -; Gender: F English As A Second Language Teacher: mechelle; : 1945 Requested By: ARACELY ARIAS; Order Number: [id number] Reading MD: Kinsey Mata; Measurements; Intervals [place]; Rate: 60 P: 0; GA: 120 QRS: 11; QRSD: 92 T: 36; QT: 446; QTc: 449; Interpretive Statements; SINUS RHYTHM; SIMILAR 06/15/16 17:11; Electronically Signed On 06-16-2016 19:50:50 EST by Kinsey Mata; Outcome: 22:38 Discharge ordered by Provider. pc 22:52 Discharge Assessment: Patient awake, alert and oriented x 3. No cognitive and/or ko2 functional deficits noted. Patient verbalized understanding of disposition instructions. patient administered narcotics - no. The following High Risk Discharge criteria are identified: None. Discharged to home ambulatory, with family. Condition: stable. Discharge instructions given to patient, Instructed on discharge instructions, follow up and referral plans. Demonstrated understanding of instructions, Pt was receptive of discharge instructions/ teaching. No special radiology studies were completed. Property sent home with patient. 22:54 Patient left the ED. ko2 Signatures: Dispatcher [employer] EDMS Melo Vergara MD MD pc Johnson, Bruce, RN RN Summer Palomino, Reg Reg Ayana Hernandez, RN RN jc4 Velia Mack, ENROLLMENT MANAGEMENT COORDINATOR ENROLLMENT MANAGEMENT COORDINATOR vicente Leland, Jenniffer dem1 Ayana Mcknight,RN RN js13 Hanna Hu Brogan, DO bs6 Maria Luisa Anderson RN RN prashant2 Callie Ho Chart Complete MTDD
--- NOTE | 2016-06-17 23:54 | EDDOCDS ---
Physician Documentation [facility] Name: Ramila Coppola Age: 71 yrs Sex: Female : 1945 Arrival Date: 06/15/2016 Time: 16:26 Bed 8 Private MD: Ricky Cueto Disposition: 06/15 22:37 Critical Care: Critical care not applicable. Disposition: 06/15/16 22:38 Discharged to Home/Self Care. Impression: Chest pain, unspecified. - Condition is Stable. - Discharge Instructions: Nonspecific Chest Pain. - Medication Reconciliation, Local Pharmacy Hours form. - Follow up: Ricky Cueto MD; When: Call to arrange an appointment; Reason: Continuance of care. - Problem is new. - Symptoms have improved. Historical: - Allergies: PENICILLINS (Rash); Tramadol HCl (Vomit); Darvon (Vomit); Morphine (Vomit); Dilaudid (Vomit); - Home Meds: 1. aspirin 81 mg Oral tab 1 tab once daily 2. atenolol 50 mg Oral tab 1 tab 2 times per day - PMHx: Hypercholesterolemia; Hypertension; - PSHx: Cervical Fusion; Left Heart Cath 2015 w/o intervention; - Social history: Smoking status: Patient states was never smoker of tobacco. No barriers to communication noted, The patient speaks fluent Setsw[place], Speaks appropriately for age. - Family history: Not pertinent. - : The pt / caregiver states he / she is not on anticoagulants. Home medication list is obtained from the patient. - Exposure Risk Screening:: None identified. Vital Signs: 16:28 BP 206 / 91 LA Sitting (auto/reg); Pulse 56; Resp 16; Temp 96.9; Pulse Ox 100% ; Weight cmb 74.84 kg / 164.99 lbs; Height 5 ft. 9 in. (175.26 cm); Pain 5/10; 16:28 BP 169 / 84 RA Sitting (auto/reg); cmb 17:40 BP 160 / 94 (auto/); jc4 17:40 Pulse 56 MON; Pulse Ox 96% ; jc4 17:55 BP 171 / 79 (auto/); jc4 17:55 Pulse 56 MON; Pulse Ox 95% ; jc4 18:00 BP 168 / 81 (auto/); jc4 18:00 Pulse 56 MON; Pulse Ox 97% ; jc4 18:10 BP 154 / 81 (auto/); jc4 18:10 Pulse 54 MON; Pulse Ox 96% ; jc4 18:25 BP 145 / 77 (auto/); jc4 18:25 Pulse 54 MON; Pulse Ox 96% ; jc4 18:40 BP 198 / 80 (auto/); jc4 18:41 Pulse 58 MON; Pulse Ox 99% ; jc4 18:55 BP 150 / 68 (auto/); jc4 18:55 Pulse 58 MON; Pulse Ox 95% ; jc4 19:25 BP 194 / 84 (auto/); ko2 19:25 Pulse 60 MON; ko2 19:40 BP 141 / 65 (auto/); ko2 19:40 Pulse 64 MON; ko2 19:55 BP 150 / 72 (auto/); ko2 19:55 Pulse 60 MON; ko2 20:02 Pulse 62 MON; ko2 20:10 BP 144 / 68 (auto/); ko2 20:25 BP 132 / 72 (auto/); ko2 20:31 Pulse 60 MON; Pulse Ox 95% ; ko2 20:40 BP 137 / 69 (auto/); ko2 20:41 Pulse 62 MON; Pulse Ox 95% ; ko2 20:55 BP 161 / 76 (auto/); ko2 20:55 Pulse 62 MON; Pulse Ox 95% ; ko2 21:09 Pulse 62 MON; Pulse Ox 97% ; ko2 21:10 BP 151 / 77 (auto/); ko2 22:41 BP 169 / 77; Pulse 65; Resp 18; Temp 98.4(TE); Pulse Ox 96% on R/A; Pain 0/10; vicente 16:28 Body Mass Index 24.37 (74.84 kg, 175.26 cm) cmb MDM: 17:02 Associate Dean Of Women/Pulse Ox/q 30 min VS ordered. sd1 17:02 IV Saline Lock ordered. sd1 17:02 Rhythm Strip to chart ordered. sd1 17:02 Undress patient appropriately for examination ordered. sd1 17:03 Basic Metabolic Profile Ordered. EDMS 17:03 CBC with Diff Ordered. EDMS 17:03 Cardiac Injury Profile Ordered. EDMS 17:03 Troponin Ordered. EDMS 17:04 portable chest Ordered. EDMS 17:04 ECG WITH READING ER PHYS+CARDIAG ordered. EDMS 17:44 Misc Aircraft Instrument Repairer Order ordered. bs6 17:44 Repeat EKG (put time details section) ordered. bs6 17:54 Misc Aircraft Instrument Repairer Order complete. lbd 17:55 Repeat EKG (put time details section) complete. lbd 17:55 REGULAR+DIET ordered. EDMS 17:59 ECG WITH READING ER PHYS ordered. EDMS 17:59 CARDIAC MARKER PANEL Ordered. EDMS 18:40 ketorolac 30 mg IVP once ordered. bs6 19:31 Financial registration complete. gjb 21:01 Urine Dip ordered. jul 03:52 Test interpretation: EKG. pc 22:31 Basic Metabolic Profile Reviewed. pc 22:31 CBC with Diff Reviewed. pc 22:31 Cardiac Injury Profile Reviewed. pc 22:31 Troponin Reviewed. pc 22:31 CARDIAC MARKER PANEL Reviewed. pc 22:31 portable chest Reviewed. pc 22:37 Data reviewed: EKG(s), lab test results. Test interpretation: LAB - all labs as ordered pc have been reviewed, interpreted and considered in the overall management of the clinical presentation;. The patient has been re-examined and re-evaluated. The patient's symptoms have resolved after treatment. Disposition: The historical points, examination findings, and any diagnostic results supporting the provided diagnosis, were discussed with the patient or legal guardian. The need for outpatient follow up with the provider listed on their discharge instructions was discussed. They were encouraged to return to [facility], or the nearest ED, if symptoms worsen/persist, or for any other questions/concerns. 06/16 00:12 [facility] [place] Payment Agreement was scanned into [employer] and attached to record. gjb 11:06 T-Sheet-- Draft Copy was scanned into [employer] and attached to record. gb 11:06 ECG/EKG was scanned into [employer] and attached to record. gb 11:06 Trend VS was scanned into [employer] and attached to record. gb EC/03 21:52 Rate is 60 beats/min. Rhythm is regular, Normal Sinus Rhythm. QRS [place] is Normal. [place] pc interval is normal. QRS interval is normal. QT interval is normal. No Q waves. T waves are Normal. No ST changes noted. Clinical impression: Normal Sinus Rhythm. Point of Care Testing: Urine Dip: 21:06 pH: 6; ; Specific [place]: 1.015; Ketones: Trace; Glucose: 50 mg/dL; Protein: Trace; ko2 Leukocytes: Negative; Nitrite: Negative ; Blood: Small (+); Bilirubin: Negative ; Urobilinogen: Normal Ranges: Administered Medications: 19:19 Drug: ketorolac 30 mg [ketorolac 30 mg/mL (1 mL) injection solution (1 mL)] Route: IVP; ko2 Site: right antecubital; Signatures: Dispatcher [employer] Melo Roth MD MD pc Delaney-Rowland, Sarah, MD MD sd1 Lindsey Sow, Exercise Teacher Unit lbd Mathew Orellana, RN RN Lia Alfred, RN RN Summer Cordova, Rafiq Reg Ayana Hernandez, RN RN jc4 Tri Antonio, DO SANCHEZ bs6 Maria Luisa Anderson,RN RN prashant2 Callie Ho The chart was reviewed and I authenticate all verbal orders and agree with the evaluation and treatment provided.Attachments: 06/16 00:12 [facility] [place] Payment Agreement kris 11:06 T-Sheet-- Draft Copy gb 11:06 ECG/EKG Chart Complete MTDD
== END 2016-06-15 22:54 | disposition home or self-care (01) ==
LOC: M ED 16:26
DX: R07.9 Chest pain, unspecified (principal); E78.00 Pure hypercholesterolemia, unspecified; I10 Essential (primary) hypertension; Z79.82 Long term (current) use of aspirin; Z79.899 Other long term (current) drug therapy; Z88.0 Allergy status to penicillin; Z88.8 Allergy status to other drugs, medicaments and biological substances
CPT/HCPCS: 36415; 71010; 80048; 82550; 82553; 84484; 85025; 93005; 93041; 96374; 99285; J1885

== ENCOUNTER → 2016-08-16 | Outpatient (CLI) | payer MEDICARE, BC, OTHER ==
--- NOTE | 2016-08-16 11:01 | REP ---
MRI LEFT KNEE: TECHNIQUE: Axial proton density fat saturation, sagittal proton density T2 STIR, water excitation, coronal proton density, proton density fat saturation. There is complex tear of the posterior horn of the medial meniscus. There appears to be fraying centrally of the posterior horn of the lateral meniscus. The cruciate and collateral ligaments are intact. The extensor mechanism is intact. There is mild global chondromalacia in all three compartments of the knee. There is no bone marrow edema or occult fracture. There is a mild to moderate joint effusion. There is no popliteal cyst. IMPRESSION: Complex tear posterior horn medial meniscus. There appears to be fraying centrally of the posterior horn lateral meniscus. Cruciate and collateral ligaments are intact. Mild global chondromalacia. Mild to moderate joint effusion. Signed by Darrin Limon MD 08/16/2016 04:14 P
== END ==
LOC: M RAD 09:39
PROVIDERS: ATTEND Family Medicine
DX: M17.12 Unilateral primary osteoarthritis, left knee (principal)

== ENCOUNTER → 2016-10-14 | Outpatient (REF) | payer MEDICARE, OTHER | LOC: M LAB REF 12:18 | PROVIDERS: ATTEND Physician Assistant | DX: N39.0 Urinary tract infection, site not specified (principal) ==

== ENCOUNTER → 2017-02-10 | Outpatient (REF) | payer MEDICARE, OTHER ==
[2017-02-10 13:22] LABS: ALBUMIN 3.4 GM/DL (3.2-5.2); ALKALINE PHOSPHATASE 86 U/L (45-117); ALT/SGPT 24 U/L (12-78); ANION GAP 9 MEQ/L (8-16); AST/SGOT 18 U/L (15-37); BILIRUBIN,TOTAL 0.3 MG/DL (0.2-1.0); BLOOD UREA NITROGEN 19 MG/DL (7-18); CARBON DIOXIDE LEVEL 27 MEQ/L (21-32); CHLORIDE LEVEL 108 MEQ/L (98-107); CHOLESTEROL LEVEL 216 MG/DL (<200); CREATININE FOR GFR 0.85 MG/DL (0.55-1.02); GLOMERULAR FILTRATION RATE > 60.0 (>39); GLUCOSE, FASTING 79 MG/DL (83-110); POTASSIUM SERUM 4.3 MEQ/L (3.5-5.1); SODIUM LEVEL 144 MEQ/L (136-145); TOTAL PROTEIN 6.8 GM/DL (6.4-8.2); TRIGLYCERIDES LEVEL 198 MG/DL (<150)
== END ==
LOC: M SFHCPLAZ 09:31
PROVIDERS: ATTEND Family Medicine
DX: I25.10 Atherosclerotic heart disease of native coronary artery without angina pectoris (principal); M85.80 Other specified disorders of bone density and structure, unspecified site; Z79.82 Long term (current) use of aspirin; Z79.899 Other long term (current) drug therapy

== ENCOUNTER → 2017-06-16 | Outpatient (REF) | payer MEDICARE, OTHER ==
[2017-06-16 14:35] LABS: ALBUMIN 3.8 GM/DL (3.2-5.2); ALBUMIN/GLOBULIN RATIO 1.15 (1.00-1.93); ALKALINE PHOSPHATASE 84 U/L (45-117); ALT/SGPT 27 U/L (12-78); ANION GAP 6 MEQ/L (8-16); AST/SGOT 26 U/L (7-37); BILIRUBIN,TOTAL 0.4 MG/DL (0.2-1.0); BLOOD UREA NITROGEN 13 MG/DL (7-18); CARBON DIOXIDE LEVEL 29 MEQ/L (21-32); CHLORIDE LEVEL 107 MEQ/L (98-107); CHOLESTEROL LEVEL 229 MG/DL (<200); CHOLESTEROL RISK RATIO 4.673 (<5); CPK CREATINE PHOSPHOKINASE 139 U/L (26-192); CREATININE FOR GFR 0.77 MG/DL (0.55-1.02); FREE T4 1.01 NG/DL (0.76-1.46); GLOMERULAR FILTRATION RATE > 60.0 (>39); GLUCOSE, FASTING 91 MG/DL (83-110); HDL CHOLESTEROL 49 MG/DL (>40); LDL CHOLESTEROL 149.8 MG/DL (<100); NON-HDL-C 180 MG/DL; POTASSIUM SERUM 4.5 MEQ/L (3.5-5.1); SODIUM LEVEL 142 MEQ/L (136-145); TOTAL PROTEIN 7.1 GM/DL (6.4-8.2); TRIGLYCERIDES LEVEL 151 MG/DL (<150)
[2017-06-17 09:25] LABS: THYROID PEROXIDASE ANTIBODY < 28.0 U/ML (<60.0)
== END ==
LOC: M SFHCPLAZ 10:31
DX: E78.5 Hyperlipidemia, unspecified (principal)
CPT/HCPCS: 82550

== ENCOUNTER 2018-05-02 19:31 | Emergency (ER) | payer MEDICARE, OTHER ==
[2018-05-02] MEDS: METOCLOPRAMIDE INJ 10MG/2ML VIAL (J2765) IV (20:28)
[2018-05-02] MEDS: NS 1,000 ML IV (20:28)
[2018-05-02 20:29] LABS: BASO % 0.4 % (0.0-1.0); EOS # 0.2 10^3/uL (0.0-0.50); EOS % 1.4 % (0.0-3.0); HEMATOCRIT 38.6 % (36.0-47.0); HEMOGLOBIN 12.5 g/dl (12.0-15.5); IMMATURE GRANULOCYTE % 0.4 % (0-3.0); LYMPH # 2.5 10^3/uL (1.5-4.5); LYMPH % 22.7 % (24.0-44.0); MEAN CORPUSCULAR HEMOGLOBIN 28.1 pg (27.0-33.0); MEAN CORPUSCULAR HGB CONC 32.4 g/dl (32.0-36.5); MEAN CORPUSCULAR VOLUME 86.7 fl (80.0-96.0); MONO # 0.7 10^3/uL (0.0-0.8); NEUTROPHILS # 7.7 10^3/uL (1.8-7.7); NEUTROPHILS % 69.1 % (36.0-66.0); PLATELET COUNT, AUTOMATED 288 10^3/uL (150-450); RED BLOOD COUNT 4.45 10^6/uL (4.00-5.40); RED CELL DISTRIBUTION WIDTH 12.5 % (11.5-14.5); WHITE BLOOD COUNT 11.1 10^3/uL (4.0-10.0)
[2018-05-02 20:33] LABS: INR 0.96; PROTHROMBIN TIME 12.9 SECONDS (12.1-14.4)
[2018-05-02 20:38] LABS: ANION GAP 6 MEQ/L (8-16); BLOOD UREA NITROGEN 17 MG/DL (7-18); CALCIUM LEVEL 9.1 MG/DL (8.8-10.2); CARBON DIOXIDE LEVEL 30 MEQ/L (21-32); CHLORIDE LEVEL 106 MEQ/L (98-107); CPK CREATINE PHOSPHOKINASE 113 U/L (26-192); CREATININE FOR GFR 0.88 MG/DL (0.55-1.30); GLOMERULAR FILTRATION RATE > 60.0 (>39); GLUCOSE, FASTING 128 MG/DL (70-100); POTASSIUM SERUM 3.9 MEQ/L (3.5-5.1); SODIUM LEVEL 142 MEQ/L (136-145); TROPONIN I < 0.02 NG/ML (< 0.10)
[2018-05-02] MEDS ORDERED: ASPIRIN 325 MG TAB As Ordered (20:59)
[2018-05-02] MEDS ORDERED: ONDANSETRON 4MG/2ML VIAL (J2405) IV (21:00)
[2018-05-02] MEDS ORDERED: BISACODYL 5 MG TAB PO (21:00)
[2018-05-02] MEDS ORDERED: ASPIRIN 325 MG TAB PO (21:00)
[2018-05-02] MEDS ORDERED: ACETAMINOPHEN TAB 650MG DOSE (2X325MG) PO (21:00)
[2018-05-02] MEDS: ASPIRIN 325 MG TAB PO (21:01)
[2018-05-02] MEDS ORDERED: hydrALAZINE INJ 20 MG/ML VIAL IV (21:15)
[2018-05-02] MEDS ORDERED: ATORVASTATIN 20 MG TAB PO (21:19)
[2018-05-02 21:59] LABS: ERYTHROCYTE SEDIMENTATION RATE 18 mm/hr (0-30)
[2018-05-02] MEDS ORDERED: HEPARIN SOD (PORCINE) 5000 UNITS/ML VIAL SC (22:00)
[2018-05-03] MEDS ORDERED: ASPIRIN 81 MG CHEW TABLET PO (09:00)
[2018-05-03 09:33] LABS: BEDSIDE GLUCOSE 120 MG/DL (83-110)
== END 2018-05-02 21:33 | disposition left against medical advice (07) ==
LOC: M ED 19:31
DX: H53.122 Transient visual loss, left eye (principal); I11.9 Hypertensive heart disease without heart failure; R51 Headache; R11.0 Nausea; I25.10 Atherosclerotic heart disease of native coronary artery without angina pectoris; R00.2 Palpitations; M19.90 Unspecified osteoarthritis, unspecified site; R73.01 Impaired fasting glucose; E78.9 Disorder of lipoprotein metabolism, unspecified; Z91.018 Allergy to other foods; Z88.5 Allergy status to narcotic agent; Z91.040 Latex allergy status; Z88.0 Allergy status to penicillin; Z79.899 Other long term (current) drug therapy; Z79.82 Long term (current) use of aspirin
CPT/HCPCS: J2765

== ENCOUNTER → 2018-05-27 | Outpatient (CLI) | payer MEDICARE, BC, OTHER | LOC: M RAD 12:57 | DX: G45.9 Transient cerebral ischemic attack, unspecified (principal) | CPT/HCPCS: 70551 ==

== ENCOUNTER → 2018-06-18 | Outpatient (REF) | payer MEDICARE, OTHER ==
[~2018-06-18] MED LIST changes: +ACET1TAB16 PO; +ASPI1TAB PO; +IBUP200C25 PO; +OMEP40CA2 PO; +VITA1CAP25 PO; +VITMTA PO
== END ==
LOC: M LAB REF 12:23
PROVIDERS: ATTEND Physician Assistant
DX: N39.0 Urinary tract infection, site not specified (principal)

== ENCOUNTER → 2018-08-18 | Outpatient (CLI) | payer MEDICARE, BC ==
--- NOTE | 2018-08-18 13:27 | REPMRS ---
Patient History The patient states she has not had a clinical breast exam in over a year. Patient is postmenopausal. Family history of breast cancer at age 49 in mother, breast cancer at age 50 or over in maternal aunt. No Hormone Replacement Therapy 3D TOMOSYNTHESIS WAS PERFORMED. Digital Woman Screen Mammo: August 18, 2018 - Exam #: [id number] Bilateral CC and MLO view(s) were taken. Technologist: Ronna Schulz, Technologist Prior study comparison: March 27, 2014, bilateral bilat screen digital mammo, performed at [facility] ([facility]). March 19, 2010, bilateral screening mammogram, performed at [facility] ([facility]). FINDINGS: There are scattered fibroglandular densities. There has been no change in the appearance of the mammogram from the prior studies. There is a mild amount of residual fibroglandular tissue which is fairly symmetric. There is no interval development of dominant mass, architectural distortion, or clustered microcalcification suggestive of malignancy. Assessment: BI-RADS/ACR category 1 mammogram. Negative Mammogram. Recommendation Routine screening mammogram in 1 year (for women over age 40). This mammogram was interpreted with the aid of an FDA-approved computer-aided dectection system. Electronically Signed By: Darrin Limon MD 08/18/18 [id number]
== END ==
LOC: M WHC 12:25
PROVIDERS: ATTEND Family Medicine
DX: Z12.31 Encounter for screening mammogram for malignant neoplasm of breast (principal); Z78.0 Asymptomatic menopausal state; Z80.3 Family history of malignant neoplasm of breast

== ENCOUNTER → 2018-09-06 | Outpatient (REF) | payer OTHER ==
[2018-09-06 11:39] LABS: BASO # 0.1 10^3/uL (0.0-0.2); EOS # 0.3 10^3/uL (0.0-0.50); HEMATOCRIT 39.5 % (36.0-47.0); HEMOGLOBIN 12.5 g/dl (12.0-15.5); LYMPH % 29.4 % (24.0-44.0); MEAN CORPUSCULAR HEMOGLOBIN 27.8 pg (27.0-33.0); MEAN CORPUSCULAR HGB CONC 31.6 g/dl (32.0-36.5); MEAN CORPUSCULAR VOLUME 87.8 fl (80.0-96.0); MONO # 0.5 10^3/uL (0.0-0.8); MONO % 7.3 % (0.0-5.0); NEUTROPHILS # 3.9 10^3/uL (1.8-7.7); NEUTROPHILS % 58.2 % (36.0-66.0); PLATELET COUNT, AUTOMATED 299 10^3/uL (150-450); WHITE BLOOD COUNT 6.7 10^3/uL (4.0-10.0)
[2018-09-06 12:04] LABS: HEMOGLOBIN A1c 5.6 %
[2018-09-06 12:09] LABS: ALBUMIN 3.5 GM/DL (3.2-5.2); ALT/SGPT 22 U/L (12-78); BILIRUBIN,TOTAL 0.5 MG/DL (0.2-1.0); BLOOD UREA NITROGEN 12 MG/DL (7-18); C REACTIVE PROTEIN QUANTITATIV < 0.30 MG/DL (0.00-0.30); CALCIUM LEVEL 8.5 MG/DL (8.8-10.2); CARBON DIOXIDE LEVEL 28 MEQ/L (21-32); CHLORIDE LEVEL 109 MEQ/L (98-107); CHOLESTEROL LEVEL 231 MG/DL (<200); CHOLESTEROL RISK RATIO 4.442 (<5); CREATININE FOR GFR 0.76 MG/DL (0.55-1.30); GLOMERULAR FILTRATION RATE > 60.0 (>39); GLUCOSE, FASTING 95 MG/DL (70-100); HDL CHOLESTEROL 52 MG/DL (>40); LDL CHOLESTEROL 155 MG/DL (<100); NON-HDL-C 179 MG/DL; POTASSIUM SERUM 4.7 MEQ/L (3.5-5.1); SODIUM LEVEL 142 MEQ/L (136-145); TOTAL PROTEIN 6.9 GM/DL (6.4-8.2); TRIGLYCERIDES LEVEL 122 MG/DL (<150)
[2018-09-06 12:11] LABS: PTH INTACT 49.3 PG/ML (18.5-88.0); TOTAL 25(OH) VITAMIN D 35.5 NG/ML (30.0-100.0)
== END ==
LOC: M SFHCPLAZ 08:44
PROVIDERS: ATTEND Family Medicine
DX: I10 Essential (primary) hypertension (principal); E78.5 Hyperlipidemia, unspecified; R73.01 Impaired fasting glucose; E55.9 Vitamin D deficiency, unspecified

== ENCOUNTER → 2018-09-22 | Outpatient (CLI) | payer OTHER ==
[~2018-09-22] MED LIST changes: -ASPI1TAB PO; +ASPI81TA26 PO
--- NOTE | 2018-09-22 15:50 | REP ---
PA and lateral chest: Comparison is 11/03/2012. The lung buckley are clear. The cardiac size is normal. The mau, mediastinum, and skeletal structures are unremarkable. Impression: Negative PA and lateral chest. There is no interval change. Cervical spine stabilization plate is again identified. Electronically Signed by Darrin Antoine MD 09/22/2018 03:41 P
== END ==
LOC: M ADAMS 13:59
PROVIDERS: ATTEND Physician Assistant Medical
DX: Z87.09 Personal history of other diseases of the respiratory system (principal); Z98.1 Arthrodesis status

== ENCOUNTER → 2019-01-04 | Outpatient (REF) | payer MEDICARE, OTHER ==
[2019-01-04 13:20] LABS: AMORPHOUS SEDIMENT SMALL (NEGATIVE); APPEARANCE, URINE CLEAR (CLEAR); BACTERIA, URINE AUTO NEGATIVE (NEGATIVE); BILIRUBIN, URINE AUTO NEGATIVE (NEGATIVE); BLOOD, URINE BLOOD NEGATIVE (NEGATIVE); COLOR, URINE YELLOW (YELLOW); GLUCOSE, URINE (UA) AUTO NEGATIVE (NEGATIVE); KETONE, URINE AUTO NEGATIVE (NEGATIVE); LEUKOCYTE ESTERASE, URINE AUTO 2+ (NEGATIVE); MUCUS, URINE SMALL (NEGATIVE); NITRITE, URINE AUTO NEGATIVE (NEGATIVE); PROTEIN, URINE AUTO NEGATIVE (NEGATIVE); RBC, URINE AUTO 2 /HPF (0-3); SPECIFIC GRAVITY URINE AUTO 1.008 (1.002-1.035); SQUAMOUS EPITHELIAL CELL UR AU 1 /HPF (0-6); UROBILINOGEN, URINE AUTO 0.2 mg/dL (0.0-2.0); WBC, URINE AUTO 2 /HPF (0-3)
[2019-01-04 13:43] LABS: HEMOGLOBIN A1c 5.7 %
[2019-01-04 13:47] LABS: CHOLESTEROL RISK RATIO 4.023 (<5); FREE T4 0.88 NG/DL (0.76-1.46); THYROID STIMULATING HORMONE 2.94 uIU/ML (0.358-3.740)
[2019-01-04 14:05] LABS: CREATININE, URINE 39.1 MG/DL; MALB URINE SIEMENS 8.7 MG/L; MAU/CREAT RATIO 22.2 MCG/MG (0.0-30.0)
== END ==
LOC: M SFHCPLAZ 09:28
PROVIDERS: ATTEND Family Medicine
DX: E78.5 Hyperlipidemia, unspecified (principal); R73.01 Impaired fasting glucose

== ENCOUNTER → 2019-05-21 | Outpatient (REF) | payer MEDICARE, OTHER ==
[~2019-05-21] MED LIST changes: -OMEP40CA2 PO; +OMEP40CA97 PO
[2019-05-21 14:10] LABS: BASO # 0.1 10^3/uL (0.0-0.2); BASO % 0.9 % (0.0-1.0); EOS # 0.4 10^3/uL (0.0-0.5); EOS % 4.9 % (0.0-3.0); HEMATOCRIT 40.5 % (36.0-47.0); HEMOGLOBIN 12.9 g/dl (12.0-15.5); LYMPH # 2.9 10^3/uL (1.5-5.0); LYMPH % 33.8 % (24.0-44.0); MEAN CORPUSCULAR HGB CONC 31.9 g/dl (32.0-36.5); MEAN CORPUSCULAR VOLUME 87.9 fl (80.0-96.0); MONO # 0.6 10^3/uL (0.0-0.8); MONO % 7.3 % (0.0-5.0); NEUTROPHILS # 4.5 10^3/uL (1.5-8.5); NEUTROPHILS % 52.9 % (36.0-66.0); PLATELET COUNT, AUTOMATED 316 10^3/uL (150-450); RED BLOOD COUNT 4.61 10^6/uL (4.00-5.40); WHITE BLOOD COUNT 8.5 10^3/uL (4.0-10.0)
[2019-05-21 14:20] LABS: ALBUMIN 3.7 GM/DL (3.2-5.2); ALT/SGPT 27 U/L (12-78); BILIRUBIN,TOTAL 0.6 MG/DL (0.2-1.0); BLOOD UREA NITROGEN 15 MG/DL (7-18); CARBON DIOXIDE LEVEL 28 MEQ/L (21-32); CHLORIDE LEVEL 110 MEQ/L (98-107); CHOLESTEROL LEVEL 190 MG/DL (<200); CHOLESTEROL RISK RATIO 3.015 (<5); CREATININE FOR GFR 0.89 MG/DL (0.55-1.30); GLOMERULAR FILTRATION RATE > 60.0 (>39); GLUCOSE, FASTING 90 MG/DL (70-100); HDL CHOLESTEROL 63 MG/DL (>40); LDL CHOLESTEROL 107 MG/DL (<100); NON-HDL-C 127 MG/DL; POTASSIUM SERUM 4.6 MEQ/L (3.5-5.1); SODIUM LEVEL 143 MEQ/L (136-145); TRIGLYCERIDES LEVEL 98 MG/DL (<150)
[2019-05-21 14:28] LABS: TOTAL 25(OH) VITAMIN D 35.8 NG/ML (30.0-100.0)
[2019-05-21 14:29] LABS: PTH INTACT 74.6 PG/ML (18.5-88.0)
[2019-05-21 14:35] LABS: HEMOGLOBIN A1c 5.8 %
== END ==
LOC: M SFHCPLAZ 11:10
PROVIDERS: ATTEND Family Medicine
DX: E55.9 Vitamin D deficiency, unspecified (principal); R73.01 Impaired fasting glucose; E78.5 Hyperlipidemia, unspecified; Z79.82 Long term (current) use of aspirin; Z79.899 Other long term (current) drug therapy

== ENCOUNTER → 2019-07-13 | Outpatient (REF) | payer MEDICARE, OTHER | LOC: M LAB REF 12:19 | PROVIDERS: ATTEND Nurse Practitioner Family | DX: R30.0 Dysuria (principal) ==

== ENCOUNTER → 2019-08-17 | Outpatient (CLI) | payer OTHER ==
[2019-08-17 13:44] LABS: BASO # 0.1 10^3/uL (0.0-0.2); BASO % 0.6 % (0.0-1.0); EOS # 0.4 10^3/uL (0.0-0.5); EOS % 4.9 % (0.0-3.0); HEMATOCRIT 37.1 % (36.0-47.0); HEMOGLOBIN 11.9 g/dl (12.0-15.5); LYMPH # 2.4 10^3/uL (1.5-5.0); LYMPH % 29.8 % (24.0-44.0); MEAN CORPUSCULAR HEMOGLOBIN 27.9 pg (27.0-33.0); MEAN CORPUSCULAR HGB CONC 32.1 g/dl (32.0-36.5); MEAN CORPUSCULAR VOLUME 87.1 fl (80.0-96.0); MONO # 0.6 10^3/uL (0.0-0.8); MONO % 7.6 % (0.0-5.0); NEUTROPHILS # 4.5 10^3/uL (1.5-8.5); NEUTROPHILS % 56.7 % (36.0-66.0); PLATELET COUNT, AUTOMATED 294 10^3/uL (150-450); RED BLOOD COUNT 4.26 10^6/uL (4.00-5.40); WHITE BLOOD COUNT 7.9 10^3/uL (4.0-10.0)
[2019-08-17 13:57] LABS: ALBUMIN 3.6 GM/DL (3.2-5.2); ALT/SGPT 26 U/L (12-78); BILIRUBIN,TOTAL 0.4 MG/DL (0.2-1.0); BLOOD UREA NITROGEN 11 MG/DL (7-18); CARBON DIOXIDE LEVEL 32 MEQ/L (21-32); CHLORIDE LEVEL 108 MEQ/L (98-107); CREATININE FOR GFR 0.81 MG/DL (0.55-1.30); FERRITIN 92 NG/ML (8-252); GLOMERULAR FILTRATION RATE > 60.0 (>39); GLUCOSE, FASTING 77 MG/DL (70-100); IRON (FE) 39 UG/DL (50-170); MAGNESIUM LEVEL 2.3 MG/DL (1.8-2.4); PERCENT SATURATION 14.4 % (13.2-45.0); POTASSIUM SERUM 4.2 MEQ/L (3.5-5.1); SODIUM LEVEL 141 MEQ/L (136-145); TOTAL IRON BINDING CAPACITY 270 UG/DL (250-450); TOTAL PROTEIN 7.3 GM/DL (6.4-8.2)
[2019-08-17 14:00] LABS: APPEARANCE, URINE CLEAR (CLEAR); BACTERIA, URINE AUTO 1+ (NEGATIVE); BILIRUBIN, URINE AUTO NEGATIVE (NEGATIVE); BLOOD, URINE BLOOD NEGATIVE (NEGATIVE); COLOR, URINE YELLOW (YELLOW); GLUCOSE, URINE (UA) AUTO NEGATIVE (NEGATIVE); KETONE, URINE AUTO NEGATIVE (NEGATIVE); LEUKOCYTE ESTERASE, URINE AUTO 2+ (NEGATIVE); MUCUS, URINE SMALL (NEGATIVE); NITRITE, URINE AUTO NEGATIVE (NEGATIVE); PROTEIN, URINE AUTO NEGATIVE (NEGATIVE); RBC, URINE AUTO 1 /HPF (0-3); SPECIFIC GRAVITY URINE AUTO 1.008 (1.002-1.035); SQUAMOUS EPITHELIAL CELL UR AU 1 /HPF (0-6); UROBILINOGEN, URINE AUTO 0.2 mg/dL (0.0-2.0); WBC, URINE AUTO 3 /HPF (0-3)
== END ==
LOC: M PLALAB 10:50
PROVIDERS: ATTEND Family Medicine
DX: N39.0 Urinary tract infection, site not specified (principal); I10 Essential (primary) hypertension

== ENCOUNTER → 2020-02-22 | Outpatient (REF) | payer MEDICARE, BC, OTHER | LOC: M LAB REF 12:42 | PROVIDERS: ATTEND Nurse Practitioner Family | DX: R30.0 Dysuria (principal) ==

== ENCOUNTER → 2020-03-12 | Outpatient (CLI) | payer MEDICARE, BC, OTHER ==
[2020-03-12 13:56] LABS: HEMATOCRIT 40.3 % (36.0-47.0); HEMOGLOBIN 12.5 g/dl (12.0-15.5); MEAN CORPUSCULAR HEMOGLOBIN 27.4 pg (27.0-33.0); MEAN CORPUSCULAR VOLUME 88.2 fl (80.0-96.0); PLATELET COUNT, AUTOMATED 280 10^3/uL (150-450); RED BLOOD COUNT 4.57 10^6/uL (4.00-5.40); WHITE BLOOD COUNT 7.5 10^3/uL (4.0-10.0)
[2020-03-12 14:32] LABS: ALBUMIN 3.4 GM/DL (3.2-5.2); ALT/SGPT 30 U/L (12-78); BILIRUBIN,TOTAL 0.9 MG/DL (0.2-1.0); BLOOD UREA NITROGEN 14 MG/DL (7-18); CALCIUM LEVEL 9.3 MG/DL (8.8-10.2); CARBON DIOXIDE LEVEL 27 MEQ/L (21-32); CHLORIDE LEVEL 108 MEQ/L (98-107); CHOLESTEROL LEVEL 204 MG/DL (<200); CREATININE FOR GFR 0.82 MG/DL (0.55-1.30); FREE T4 0.95 NG/DL (0.76-1.46); GLOMERULAR FILTRATION RATE > 60.0 (>39); GLUCOSE, FASTING 96 MG/DL (70-100); HDL CHOLESTEROL 50 MG/DL (>40); LDL CHOLESTEROL 126 MG/DL (<100); NON-HDL-C 154 MG/DL; POTASSIUM SERUM 4.8 MEQ/L (3.5-5.1); PTH INTACT 63.8 PG/ML (18.5-88.0); SODIUM LEVEL 140 MEQ/L (136-145); TOTAL 25(OH) VITAMIN D 42.2 NG/ML (30.0-100.0); TOTAL PROTEIN 6.8 GM/DL (6.4-8.2); TRIGLYCERIDES LEVEL 142 MG/DL (<150)
[2020-03-12 14:48] LABS: HEMOGLOBIN A1c 5.6 %
== END ==
LOC: M PLALAB 10:28
PROVIDERS: ATTEND Family Medicine
DX: I25.10 Atherosclerotic heart disease of native coronary artery without angina pectoris (principal); I10 Essential (primary) hypertension; E78.5 Hyperlipidemia, unspecified; Z79.899 Other long term (current) drug therapy

== ENCOUNTER → 2020-03-14 | Outpatient (REF) | payer MEDICARE, OTHER | LOC: M LAB REF 12:24 | PROVIDERS: ATTEND Physician Assistant | DX: R30.0 Dysuria (principal) ==

== ENCOUNTER 2020-08-21 00:31 | Emergency (ER) | payer MEDICARE, OTHER ==
[~2020-08-21] VITALS: Ht 172.7 cm; Wt 75.0 kg
[2020-08-21] MEDS ORDERED: ASPIRIN 81 MG CHEW TABLET PO ONE (01:00)
[2020-08-21 01:08] LABS: BASO # 0.1 10^3/uL (0.0-0.2); BASO % 0.6 % (0.0-1.0); EOS # 0.3 10^3/uL (0.0-0.5); HEMATOCRIT 41.9 % (36.0-47.0); LYMPH # 3.3 10^3/uL (1.5-5.0); LYMPH % 30.6 % (24.0-44.0); MEAN CORPUSCULAR HEMOGLOBIN 27.5 pg (27.0-33.0); MEAN CORPUSCULAR VOLUME 88.8 fl (80.0-96.0); MONO % 9.6 % (2.0-8.0); NEUTROPHILS # 6.1 10^3/uL (1.5-8.5); PLATELET COUNT, AUTOMATED 300 10^3/uL (150-450); RED BLOOD COUNT 4.72 10^6/uL (4.00-5.40); WHITE BLOOD COUNT 10.9 10^3/uL (4.0-10.0)
[2020-08-21] MEDS ORDERED: EZET10TA21 (01:11)
[2020-08-21] MEDS: NITROGLYCERIN 0.4 MG SUBL TABLET SL PRN ×3 (01:16→01:39)
[2020-08-21 01:21] LABS: INR 0.9; PROTHROMBIN TIME 12.3 SECONDS (12.5-14.3)
[2020-08-21 01:22] LABS: PARTIAL THROMBOPLASTIN TIME 24.7 SECONDS (24.2-38.5)
[2020-08-21 01:24] LABS: D-DIMER QUANT 784.21 ng/ml (<500)
[2020-08-21 01:35] LABS: ALBUMIN 3.8 GM/DL (3.2-5.2); BILIRUBIN,DIRECT 0.1 MG/DL (0.0-0.2); BILIRUBIN,TOTAL 0.3 MG/DL (0.2-1.0); CALCIUM LEVEL 9.6 MG/DL (8.8-10.2); CK-MB VALUE MASS 4.8 NG/ML (<3.6); CREATININE FOR GFR 1.01 MG/DL (0.55-1.30); MB/CK RELATIVE INDEX 2.09 (< OR =4); POTASSIUM SERUM 4.1 MEQ/L (3.5-5.1); TOTAL PROTEIN 7.3 GM/DL (6.4-8.2); TROPONIN I 0.64 NG/ML (< 0.10)
[2020-08-21 01:39] VITALS: BP 175/91
[2020-08-21] MEDS ORDERED: ISOVUE-370 76% 100ML VIAL As Ordered ONE (01:44)
--- NOTE | 2020-08-21 01:59 | REPVR ---
PROCEDURE INFORMATION: Exam: XR Chest Exam date and time: 08/21/2020 1:15 AM Age: 75 years old Clinical indication: Other: Cp; Additional info: Chest pain TECHNIQUE: Imaging protocol: XR of the chest Views: 1 view. COMPARISON: 1. DX CHEST 2 VIEW 2018-09-22 14:18 2. CR PORTABLE CHEST X-RAY 2018-05-02 20:33 3. CR Chest, 1 view 2016-06-15 17:19 FINDINGS: Lungs: Unremarkable. No consolidation. Pleural spaces: Unremarkable. No pleural effusion. No pneumothorax. Heart/Mediastinum: Unremarkable. No cardiomegaly. Bones/joints: Unremarkable. IMPRESSION: No acute findings. Electronically signed by: Filiberto Henderson On 08/21/2020 01:59:35 AM
--- NOTE | 2020-08-21 02:11 | REPVR ---
PROCEDURE INFORMATION: Exam: CT Angiography Chest With Contrast Exam date and time: 08/21/2020 1:39 AM Age: 75 years old Clinical indication: Chest pain; Type not specified TECHNIQUE: Imaging protocol: Computed tomographic angiography of the chest with contrast. 3D rendering (Not supervised by radiologist): MIP and/or 3D reconstructed images were created by the technologist. Radiation optimization: All CT scans at this facility use at least one of these dose optimization techniques: automated exposure control; mA and/or kV adjustment per patient size (includes targeted exams where dose is matched to clinical indication); or iterative reconstruction. Contrast material: ISO; Contrast volume: 75 ml; Contrast route: INTRAVENOUS (IV); COMPARISON: 1. CR PORTABLE CHEST X-RAY 2020-08-21 01:15 2. DX CHEST 2 VIEW 2018-09-22 14:18 FINDINGS: Pulmonary arteries: Normal. No pulmonary emboli. Aorta: Unremarkable. No aortic aneurysm. No aortic dissection. Lungs: Dependent subsegmental pulmonary atelectasis. Pleural spaces: Unremarkable. No pneumothorax. No pleural effusion. Heart: Unremarkable. No cardiomegaly. No pericardial effusion. Mediastinal space: Small gastroesophageal sliding type hiatal hernia. Lymph nodes: Unremarkable. No enlarged lymph nodes. Bones/joints: Mild dextroconvex thoracic curvature. Soft tissues: Unremarkable. IMPRESSION: No acute findings. Electronically signed by: Filiberto Henderson On 08/21/2020 02:11:46 AM
[2020-08-21] MEDS ORDERED: HEPARIN DRIP 25,000 UNITS in IV 1 EA IV SCH (02:15)
[2020-08-21] MEDS ORDERED: HEPARIN SOD (PORCINE) 5000UNITS/ML 1ML VIAL/SYRINGE IV ONE (02:15)
[2020-08-21] MEDS ORDERED: CLOPIDOGREL 300 MG TAB (PLAVIX) PO ONE (02:15)
[2020-08-21 03:08] LABS: RSV AMPLIFICATION NEGATIVE (NEGATIVE)
[2020-08-21 03:30] VITALS: BP 186/82
--- NOTE | 2020-08-21 03:40 | ECGEPIP ---
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
== END 2020-08-21 03:42 | disposition short-term general hospital (02) ==
LOC: M ED 00:31
DX: I21.4 Non-ST elevation (NSTEMI) myocardial infarction (principal); I10 Essential (primary) hypertension; E78.5 Hyperlipidemia, unspecified; K21.9 Gastro-esophageal reflux disease without esophagitis; G47.33 Obstructive sleep apnea (adult) (pediatric); M51.9 Unspecified thoracic, thoracolumbar and lumbosacral intervertebral disc disorder; M85.9 Disorder of bone density and structure, unspecified; F33.9 Major depressive disorder, recurrent, unspecified; F41.1 Generalized anxiety disorder; Z79.899 Other long term (current) drug therapy; Z79.82 Long term (current) use of aspirin; Z88.0 Allergy status to penicillin; Z88.5 Allergy status to narcotic agent; Z91.018 Allergy to other foods; Z91.040 Latex allergy status
CPT/HCPCS: 71045; 71275; 80048; 80076; 82550; 82553; 83690; 84484; 85025; 85379; 85610; 85730; 87631; 93005; 93041; 94760; 96365; 99285; J1644; Q9967

== ENCOUNTER → 2020-09-16 | Outpatient (REF) | payer MEDICARE, OTHER ==
[~2020-09-16] MED LIST changes: +EZET10TA21
[2020-09-16 14:47] LABS: BASO # 0.1 10^3/uL (0.0-0.2); BASO % 0.8 % (0.0-1.0); EOS # 0.3 10^3/uL (0.0-0.5); EOS % 3.2 % (0.0-3.0); HEMATOCRIT 45.3 % (36.0-47.0); LYMPH # 3.2 10^3/uL (1.5-5.0); LYMPH % 38.7 % (24.0-44.0); MEAN CORPUSCULAR HEMOGLOBIN 27.7 pg (27.0-33.0); MEAN CORPUSCULAR HGB CONC 30.9 g/dl (32.0-36.5); MEAN CORPUSCULAR VOLUME 89.5 fl (80.0-96.0); MONO # 0.6 10^3/uL (0.0-0.8); MONO % 7.2 % (2.0-8.0); NEUTROPHILS # 4.1 10^3/uL (1.5-8.5); NEUTROPHILS % 49.9 % (36.0-66.0); PLATELET COUNT, AUTOMATED 346 10^3/uL (150-450); RED BLOOD COUNT 5.06 10^6/uL (4.00-5.40); WHITE BLOOD COUNT 8.3 10^3/uL (4.0-10.0)
[2020-09-16 15:28] LABS: ALBUMIN 3.9 GM/DL (3.2-5.2); ALT/SGPT 25 U/L (12-78); BILIRUBIN,TOTAL 0.7 MG/DL (0.2-1.0); BLOOD UREA NITROGEN 17 MG/DL (7-18); CALCIUM LEVEL 9.7 MG/DL (8.8-10.2); CARBON DIOXIDE LEVEL 29 MEQ/L (21-32); CHLORIDE LEVEL 108 MEQ/L (98-107); CREATININE FOR GFR 0.89 MG/DL (0.55-1.30); FERRITIN 124 NG/ML (8-252); FREE T4 0.99 NG/DL (0.76-1.46); GLOMERULAR FILTRATION RATE > 60.0 (>39); GLUCOSE, FASTING 104 MG/DL (70-100); MAGNESIUM LEVEL 2.4 MG/DL (1.8-2.4); NT-PRO BNP 3534 PG/ML (<125); POTASSIUM SERUM 5.1 MEQ/L (3.5-5.1); SODIUM LEVEL 140 MEQ/L (136-145); TOTAL PROTEIN 7.4 GM/DL (6.4-8.2)
[2020-09-16 16:03] LABS: HEMOGLOBIN A1c 5.6 %
== END ==
LOC: M SFHCPLAZ 11:44
PROVIDERS: ATTEND Family Medicine
DX: I10 Essential (primary) hypertension (principal); R73.01 Impaired fasting glucose; N39.0 Urinary tract infection, site not specified

== ENCOUNTER → 2020-09-17 | Outpatient (REF) | payer MEDICARE, OTHER | LOC: M SFHCPLAZ 13:35 | PROVIDERS: ATTEND Family Medicine | DX: N39.0 Urinary tract infection, site not specified (principal) ==

== ENCOUNTER → 2020-09-22 | Outpatient (REF) | payer MEDICARE, OTHER ==
[2020-09-22 14:46] LABS: CALCIUM LEVEL 9.7 MG/DL (8.8-10.2); CREATININE FOR GFR 1.04 MG/DL (0.55-1.30); GLOMERULAR FILTRATION RATE 55.1 (>39); MAGNESIUM LEVEL 2.2 MG/DL (1.8-2.4); PHOSPHORUS LEVEL 4.1 MG/DL (2.5-4.9); POTASSIUM SERUM 4.5 MEQ/L (3.5-5.1); TROPONIN I 0.06 NG/ML (< 0.10)
== END ==
LOC: M PLALAB 08:47
PROVIDERS: ATTEND Family Medicine
DX: I50.32 Chronic diastolic (congestive) heart failure (principal)

== ENCOUNTER → 2021-04-03 | Outpatient (CLI) | payer OTHER, MEDICARE ==
[~2021-04-03] MED LIST changes: +OMEP40CA4 PO; -OMEP40CA97 PO
[2021-04-03 13:18] LABS: APPEARANCE, URINE CLOUDY (CLEAR); BACTERIA, URINE AUTO 1+ (NEGATIVE); BILIRUBIN, URINE AUTO NEGATIVE (NEGATIVE); BLOOD, URINE BLOOD 2+ (NEGATIVE); COLOR, URINE YELLOW (YELLOW); GLUCOSE, URINE (UA) AUTO NEGATIVE (NEGATIVE); KETONE, URINE AUTO NEGATIVE (NEGATIVE); LEUKOCYTE ESTERASE, URINE AUTO 3+ (NEGATIVE); MUCUS, URINE SMALL (NEGATIVE); NITRITE, URINE AUTO POSITIVE (NEGATIVE); PROTEIN, URINE AUTO NEGATIVE (NEGATIVE); RBC, URINE AUTO 7 /HPF (0-3); SPECIFIC GRAVITY URINE AUTO 1.011 (1.002-1.035); SQUAMOUS EPITHELIAL CELL UR AU 5 /HPF (0-6); UROBILINOGEN, URINE AUTO 0.2 mg/dL (0.0-2.0); WBC, URINE AUTO 116 /HPF (0-3)
[2021-04-03 14:01] LABS: BILIRUBIN,TOTAL 0.6 MG/DL (0.2-1.0); CALCIUM LEVEL 9.1 MG/DL (8.8-10.2); CREATININE FOR GFR 1.12 MG/DL (0.55-1.30); GLOMERULAR FILTRATION RATE 50.6 (>39)
[2021-04-03 14:02] LABS: ALBUMIN 3.4 GM/DL (3.2-5.2); C REACTIVE PROTEIN QUANTITATIV 0.3 MG/DL (0.00-0.30); CHOLESTEROL RISK RATIO 3.53 (<5); FREE T4 0.9 NG/DL (0.76-1.46); THYROID STIMULATING HORMONE 2.19 uIU/ML (0.358-3.740); TOTAL PROTEIN 7.3 GM/DL (6.4-8.2)
[2021-04-03 14:26] LABS: HEMOGLOBIN A1c 5.4 %
== END ==
LOC: M PLALAB 10:02
PROVIDERS: ATTEND Family Medicine
DX: R73.01 Impaired fasting glucose (principal); E78.5 Hyperlipidemia, unspecified; N39.0 Urinary tract infection, site not specified

== ENCOUNTER → 2021-08-11 | Outpatient (CLI) | payer OTHER ==
[2021-08-11 16:01] LABS: APPEARANCE, URINE CLEAR (CLEAR); BACTERIA, URINE AUTO NEGATIVE (NEGATIVE); BILIRUBIN, URINE AUTO NEGATIVE (NEGATIVE); BLOOD, URINE BLOOD 1+ (NEGATIVE); COLOR, URINE STRAW (YELLOW); GLUCOSE, URINE (UA) AUTO NEGATIVE (NEGATIVE); KETONE, URINE AUTO NEGATIVE (NEGATIVE); LEUKOCYTE ESTERASE, URINE AUTO NEGATIVE (NEGATIVE); NITRITE, URINE AUTO NEGATIVE (NEGATIVE); PROTEIN, URINE AUTO NEGATIVE (NEGATIVE); RBC, URINE AUTO 0 /HPF (0-3); SPECIFIC GRAVITY URINE AUTO 1.005 (1.002-1.035); SQUAMOUS EPITHELIAL CELL UR AU 0 /HPF (0-6); UROBILINOGEN, URINE AUTO 0.2 mg/dL (0.0-2.0); WBC, URINE AUTO 4 /HPF (0-3)
[2021-08-11 16:04] LABS: BASO # 0.1 10^3/uL (0.0-0.2); BASO % 0.7 % (0.0-1.0); EOS # 0.4 10^3/uL (0.0-0.5); EOS % 3.9 % (0.0-3.0); HEMATOCRIT 39.5 % (36.0-47.0); HEMOGLOBIN 12.7 g/dl (12.0-15.5); LYMPH # 3.2 10^3/uL (1.5-5.0); LYMPH % 29.3 % (24.0-44.0); MEAN CORPUSCULAR HGB CONC 32.2 g/dl (32.0-36.5); MEAN CORPUSCULAR VOLUME 87.2 fl (80.0-96.0); MONO # 0.9 10^3/uL (0.0-0.8); MONO % 8.1 % (2.0-8.0); NEUTROPHILS # 6.2 10^3/uL (1.5-8.5); NEUTROPHILS % 57.7 % (36.0-66.0); PLATELET COUNT, AUTOMATED 309 10^3/uL (150-450); RED BLOOD COUNT 4.53 10^6/uL (4.00-5.40); WHITE BLOOD COUNT 10.8 10^3/uL (4.0-10.0)
[2021-08-11 16:37] LABS: ALBUMIN 3.8 GM/DL (3.2-5.2); BILIRUBIN,TOTAL 0.5 MG/DL (0.2-1.0); CALCIUM LEVEL 9.1 MG/DL (8.8-10.2); CREATININE FOR GFR 0.98 MG/DL (0.55-1.30); GLOMERULAR FILTRATION RATE 58.9 (>39); MAGNESIUM LEVEL 2.1 MG/DL (1.8-2.4); POTASSIUM SERUM 4.5 MEQ/L (3.5-5.1); TOTAL PROTEIN 7.5 GM/DL (6.4-8.2)
[2021-08-11 16:53] LABS: PTH INTACT 84.4 PG/ML (18.5-88.0)
== END ==
LOC: M PLALAB 12:42
PROVIDERS: ATTEND Family Medicine
DX: E55.9 Vitamin D deficiency, unspecified (principal); I10 Essential (primary) hypertension; N39.0 Urinary tract infection, site not specified

== ENCOUNTER → 2021-10-09 | Outpatient (REF) | payer MEDICARE, OTHER ==
[~2021-10-09] MED LIST changes: -ACET1TAB16 PO; +ACET300T48 PO
== END ==
LOC: M WUC 15:41
PROVIDERS: ATTEND Physician Assistant
DX: R30.0 Dysuria (principal)

== ENCOUNTER → 2022-02-09 | Outpatient (REF) | payer MEDICARE, OTHER | LOC: M WUC 16:23 | PROVIDERS: ATTEND Student in an Organized Health Care Education/Training Program | DX: R30.0 Dysuria (principal) ==

== ENCOUNTER → 2022-03-16 | Outpatient (REF) | payer MEDICARE, OTHER | LOC: M LAB REF 20:19 | PROVIDERS: ATTEND Student in an Organized Health Care Education/Training Program | DX: R30.0 Dysuria (principal) ==

== ENCOUNTER → 2022-05-24 | Outpatient (CLI) | payer MEDICARE, OTHER ==
[2022-05-24 17:44] LABS: BASO # 0.1 10^3/uL (0.0-0.2); BASO % 0.9 % (0.0-1.0); EOS # 0.5 10^3/uL (0.0-0.5); EOS % 5.3 % (0.0-3.0); HEMOGLOBIN 13.3 g/dl (12.0-15.5); LYMPH # 2.8 10^3/uL (1.5-5.0); LYMPH % 31.9 % (24.0-44.0); MEAN CORPUSCULAR HGB CONC 32.4 g/dl (32.0-36.5); MEAN CORPUSCULAR VOLUME 86.3 fl (80.0-96.0); MONO # 0.7 10^3/uL (0.0-0.8); MONO % 7.7 % (2.0-8.0); NEUTROPHILS # 4.7 10^3/uL (1.5-8.5); NEUTROPHILS % 53.9 % (36.0-66.0); PLATELET COUNT, AUTOMATED 299 10^3/uL (150-450); RED BLOOD COUNT 4.75 10^6/uL (4.00-5.40); WHITE BLOOD COUNT 8.7 10^3/uL (4.0-10.0)
[2022-05-24 17:54] LABS: APPEARANCE, URINE MANUAL CLEAR (CLEAR); COLOR, URINE MANUAL YELLOW (YELLOW); PROTEIN, URINE MANUAL TRACE mg/dL (NEGATIVE)
[2022-05-24 17:55] LABS: BILIRUBIN, URINE MANUAL NEGATIVE (NEGATIVE); BLOOD URINE MANUAL POSITIVE (NEGATIVE); GLUCOSE, URINE (UA) MANUAL NEGATIVE (NEGATIVE); KETONE, URINE MANUAL NEGATIVE (NEGATIVE); LEUKOCYTE ESTERASE, URINE MAN POSITIVE (NEGATIVE); NITRITE, URINE MANUAL NEGATIVE (NEGATIVE); UROBILINOGEN, URINE MANUAL NORMAL (NORMAL)
[2022-05-24 17:59] LABS: CHOLESTEROL RISK RATIO 3.24 (<5); LDL CHOLESTEROL 72.4 MG/DL (<100)
[2022-05-24 18:36] LABS: BACTERIA, URINE SMALL AMOUNT; HYALINE CAST, URINE NONE SEEN /lpf (0-1); MUCUS, URINE SMALL AMOUNT (NEGATIVE); RBC, URINE 0-1 /hpf (0-3); SQUAMOUS EPITHELIAL CELL URINE SMALL AMOUNT /hpf (SMALL AMT); TRANSITIONAL EPI CELLS, URINE SMALL AMOUNT /hpf
[2022-05-24 19:11] LABS: HEMOGLOBIN A1c 5.4 % (4.0-6.0)
== END ==
LOC: M PLALAB 14:25
PROVIDERS: ATTEND Family Medicine
DX: I10 Essential (primary) hypertension (principal); N39.0 Urinary tract infection, site not specified; E78.5 Hyperlipidemia, unspecified; R73.01 Impaired fasting glucose

== ENCOUNTER → 2022-11-15 | Outpatient (CLI) | payer OTHER, MEDICARE ==
[2022-11-15 11:27] LABS: BASO # 0.1 10^3/uL (0.0-0.2); BASO % 1.1 % (0.0-1.0); EOS # 0.4 10^3/uL (0.0-0.5); EOS % 4.8 % (0.0-3.0); HEMATOCRIT 43.2 % (36.0-47.0); HEMOGLOBIN 13.6 g/dl (12.0-15.5); LYMPH % 27.9 % (24.0-44.0); MEAN CORPUSCULAR HEMOGLOBIN 27.5 pg (27.0-33.0); MEAN CORPUSCULAR HGB CONC 31.5 g/dl (32.0-36.5); MEAN CORPUSCULAR VOLUME 87.3 fl (80.0-96.0); MONO # 0.6 10^3/uL (0.0-0.8); MONO % 8.3 % (2.0-8.0); NEUTROPHILS # 4.2 10^3/uL (1.5-8.5); NEUTROPHILS % 57.8 % (36.0-66.0); PLATELET COUNT, AUTOMATED 275 10^3/uL (150-450); RED BLOOD COUNT 4.95 10^6/uL (4.00-5.40); WHITE BLOOD COUNT 7.3 10^3/uL (4.0-10.0)
[2022-11-15 11:49] LABS: HEMOGLOBIN A1c 5.6 % (4.0-6.0)
[2022-11-15 11:51] LABS: ALBUMIN 3.7 G/DL (3.2-5.2); BILIRUBIN,TOTAL 0.8 MG/DL (0.3-1.2); CALCIUM LEVEL 8.6 MG/DL (8.3-10.6); CREATININE FOR GFR 1.01 MG/DL (0.55-1.30); FREE T4 0.97 NG/DL (0.89-1.76); GLOMERULAR FILTRATION RATE 56.7 (>39); TOTAL PROTEIN 6.8 G/DL (5.7-8.2)
[2022-11-15 11:52] LABS: FERRITIN 60.2 NG/ML (7.3-270.7); THYROID STIMULATING HORMONE 3.255 uIU/ML (0.55-4.78)
[2022-11-15 11:53] LABS: TOTAL 25(OH) VITAMIN D 75.3 NG/ML (20.0-100.0)
== END ==
LOC: M PLALAB 09:03
PROVIDERS: ATTEND Family Medicine
DX: I50.32 Chronic diastolic (congestive) heart failure (principal); D50.9 Iron deficiency anemia, unspecified; E55.9 Vitamin D deficiency, unspecified; R73.01 Impaired fasting glucose; E78.2 Mixed hyperlipidemia

== ENCOUNTER → 2023-05-10 | Outpatient (CLI) | payer OTHER, MEDICARE, BC ==
[2023-05-10 14:21] LABS: BASO # 0.1 10^3/uL (0.0-0.2); BASO % 0.9 % (0.0-1.0); EOS # 0.3 10^3/uL (0.0-0.5); EOS % 4.2 % (0.0-3.0); HEMATOCRIT 43.5 % (36.0-47.0); HEMOGLOBIN 13.8 g/dl (12.0-15.5); LYMPH # 2.4 10^3/uL (1.5-5.0); LYMPH % 29.5 % (24.0-44.0); MEAN CORPUSCULAR HEMOGLOBIN 27.5 pg (27.0-33.0); MEAN CORPUSCULAR HGB CONC 31.7 g/dl (32.0-36.5); MEAN CORPUSCULAR VOLUME 86.8 fl (80.0-96.0); MONO # 0.6 10^3/uL (0.0-0.8); MONO % 6.9 % (2.0-8.0); NEUTROPHILS # 4.7 10^3/uL (1.5-8.5); NEUTROPHILS % 58.3 % (36.0-66.0); PLATELET COUNT, AUTOMATED 283 10^3/uL (150-450); RED BLOOD COUNT 5.01 10^6/uL (4.00-5.40); WHITE BLOOD COUNT 8.1 10^3/uL (4.0-10.0)
[2023-05-10 14:57] LABS: FERRITIN 70.1 NG/ML (7.3-270.7)
[2023-05-10 14:58] LABS: THYROID STIMULATING HORMONE 2.332 uIU/ML (0.55-4.78)
[2023-05-10 14:59] LABS: ALBUMIN 3.7 G/DL (3.2-5.2); ALKALINE PHOSPHATASE 83 U/L (46-116); ALT/SGPT 20 U/L (7.0-40); AST/SGOT 27 U/L (<34); BILIRUBIN,TOTAL 0.7 MG/DL (0.3-1.2); BLOOD UREA NITROGEN 16 MG/DL (9-23); CALCIUM LEVEL 9.3 MG/DL (8.3-10.6); CARBON DIOXIDE LEVEL 27 MMOL/L (20-31); CHLORIDE LEVEL 108 MMOL/L (98-107); CHOLESTEROL LEVEL 193 MG/DL (<200); CHOLESTEROL RISK RATIO 3.71 (<5); CREATININE FOR GFR 0.88 MG/DL (0.55-1.30); GLOMERULAR FILTRATION RATE > 60.0 (>39); GLUCOSE, FASTING 99 MG/DL (74-106); HDL CHOLESTEROL 51.9 MG/DL (>40); LDL CHOLESTEROL 110.7 MG/DL (<100); NON-HDL-C 141.1 MG/DL; POTASSIUM SERUM 4.8 MMOL/L (3.5-5.1); SODIUM LEVEL 144 MMOL/L (136-145); TOTAL PROTEIN 7.2 G/DL (5.7-8.2); TRIGLYCERIDES LEVEL 152 MG/DL (<150)
[2023-05-10 15:00] LABS: FREE T4 0.98 NG/DL (0.89-1.76)
[2023-05-10 15:02] LABS: THYROID PEROXIDASE ANTIBODY < 28.0 U/ML (<60.0)
[2023-05-10 15:03] LABS: THYROGLOBULIN ANTIBODY < 15.0 U/ML (<60.0)
== END ==
LOC: M PLALAB 09:51
PROVIDERS: ATTEND Family Medicine
DX: E78.5 Hyperlipidemia, unspecified (principal); I11.0 Hypertensive heart disease with heart failure

== ENCOUNTER → 2023-12-22 | Outpatient (CLI) | payer OTHER, MEDICARE, BC ==
[2023-12-22 14:28] LABS: ALBUMIN 3.7 G/DL (3.2-5.2); ALKALINE PHOSPHATASE 93 U/L (46-116); ALT/SGPT 21 U/L (7.0-40); AST/SGOT 23 U/L (<34); BILIRUBIN,TOTAL 0.7 MG/DL (0.3-1.2); BLOOD UREA NITROGEN 13 MG/DL (9-23); CALCIUM LEVEL 9.1 MG/DL (8.3-10.6); CARBON DIOXIDE LEVEL 29 MMOL/L (20-31); CHLORIDE LEVEL 107 MMOL/L (98-107); CHOLESTEROL LEVEL 176 MG/DL (<200); CHOLESTEROL RISK RATIO 4.01 (<5); CREATININE FOR GFR 0.89 MG/DL (0.55-1.30); GLOMERULAR FILTRATION RATE > 60.0 (>39); GLUCOSE, FASTING 99 MG/DL (74-106); HDL CHOLESTEROL 43.8 MG/DL (>40); NON-HDL-C 132.2 MG/DL; POTASSIUM SERUM 4.6 MMOL/L (3.5-5.1); SODIUM LEVEL 140 MMOL/L (136-145); TOTAL PROTEIN 6.8 G/DL (5.7-8.2); TRIGLYCERIDES LEVEL 146 MG/DL (<150)
[2023-12-22 14:41] LABS: HEMOGLOBIN A1c 5.5 % (4.0-6.0)
== END ==
LOC: M PLALAB 09:41
PROVIDERS: ATTEND Family Medicine
DX: R73.01 Impaired fasting glucose (principal); I50.32 Chronic diastolic (congestive) heart failure

== ENCOUNTER → 2024-07-09 | Outpatient (CLI) | payer OTHER, MEDICARE, BC ==
[2024-07-09 14:30] LABS: BASO # 0.1 10^3/uL (0.0-0.2); BASO % 0.8 % (0.0-1.0); EOS # 0.4 10^3/uL (0.0-0.5); EOS % 5.2 % (0.0-3.0); HEMATOCRIT 43.3 % (36.0-47.0); HEMOGLOBIN 13.7 g/dl (12.0-15.5); LYMPH % 25.6 % (24.0-44.0); MEAN CORPUSCULAR HEMOGLOBIN 27.7 pg (27.0-33.0); MEAN CORPUSCULAR HGB CONC 31.6 g/dl (32.0-36.5); MEAN CORPUSCULAR VOLUME 87.7 fl (80.0-96.0); MONO # 0.8 10^3/uL (0.0-0.8); NEUTROPHILS # 4.5 10^3/uL (1.5-8.5); PLATELET COUNT, AUTOMATED 289 10^3/uL (150-450); RED BLOOD COUNT 4.94 10^6/uL (4.00-5.40); WHITE BLOOD COUNT 7.8 10^3/uL (4.0-10.0)
[2024-07-09 15:08] LABS: FERRITIN 69.7 NG/ML (7.3-270.7)
[2024-07-09 15:10] LABS: TOTAL 25(OH) VITAMIN D 135.1 NG/ML (20.0-100.0)
[2024-07-09 15:14] LABS: ALBUMIN 3.5 G/DL (3.2-5.2); BILIRUBIN,TOTAL 0.6 MG/DL (0.3-1.2); CREATININE FOR GFR 0.96 MG/DL (0.55-1.30); GLOMERULAR FILTRATION RATE 59.8 (>39); POTASSIUM SERUM 4.7 MMOL/L (3.5-5.1); TOTAL PROTEIN 7.2 G/DL (5.7-8.2)
[2024-07-09 15:15] LABS: HEMOGLOBIN A1c 5.4 % (4.0-6.0)
[2024-07-09 15:54] LABS: PTH INTACT 66.7 PG/ML (18.5-88.0)
== END ==
LOC: M PLALAB 09:28
PROVIDERS: ATTEND Family Medicine
DX: I50.32 Chronic diastolic (congestive) heart failure (principal); R73.01 Impaired fasting glucose; E55.9 Vitamin D deficiency, unspecified

== ENCOUNTER → 2024-08-08 | Outpatient (CLI) | payer MEDICARE, BC | LOC: M WHC 10:41 | PROVIDERS: ATTEND Family Medicine | DX: I65.23 Occlusion and stenosis of bilateral carotid arteries (principal) ==

== ENCOUNTER → 2024-09-06 | Outpatient (CLI) | payer MEDICARE, BC ==
[2024-09-06 16:33] LABS: HEMATOCRIT 40.2 % (36.0-47.0); HEMOGLOBIN 13.2 g/dl (12.0-15.5); MEAN CORPUSCULAR HEMOGLOBIN 28.2 pg (27.0-33.0); MEAN CORPUSCULAR HGB CONC 32.8 g/dl (32.0-36.5); MEAN CORPUSCULAR VOLUME 85.9 fl (80.0-96.0); PLATELET COUNT, AUTOMATED 281 10^3/uL (150-450); RED BLOOD COUNT 4.68 10^6/uL (4.00-5.40); WHITE BLOOD COUNT 8.8 10^3/uL (4.0-10.0)
[2024-09-06 16:59] LABS: ALBUMIN 3.5 G/DL (3.2-5.2); ALKALINE PHOSPHATASE 90 U/L (35-104); ALT/SGPT 19 U/L (7.0-40); AST/SGOT 24 U/L (<34); BILIRUBIN,TOTAL 0.4 MG/DL (0.3-1.2); BLOOD UREA NITROGEN 16 MG/DL (9-23); CALCIUM LEVEL 9.4 MG/DL (8.3-10.6); CARBON DIOXIDE LEVEL 28 MMOL/L (20-31); CHLORIDE LEVEL 104 MMOL/L (98-107); CREATININE FOR GFR 0.91 MG/DL (0.55-1.30); GLOMERULAR FILTRATION RATE > 60.0 (>39); GLUCOSE, FASTING 89 MG/DL (74-106); POTASSIUM SERUM 4.4 MMOL/L (3.5-5.1); SODIUM LEVEL 140 MMOL/L (136-145); TOTAL PROTEIN 7.2 G/DL (5.7-8.2)
== END ==
LOC: M RAD 15:45
PROVIDERS: ATTEND Physician Assistant Medical
DX: R30.0 Dysuria (principal); R31.9 Hematuria, unspecified; R10.32 Left lower quadrant pain; K57.30 Diverticulosis of large intestine without perforation or abscess without bleeding

== ENCOUNTER → 2024-10-04 | Outpatient (REF) | payer MEDICARE, OTHER ==
[2024-10-04 10:33] LABS: APPEARANCE, URINE HAZY (CLEAR); BACTERIA, URINE AUTO 1+ (NEGATIVE); BILIRUBIN, URINE AUTO NEGATIVE (NEGATIVE); BLOOD, URINE BLOOD 1+ (NEGATIVE); COLOR, URINE YELLOW (YELLOW); GLUCOSE, URINE (UA) AUTO NEGATIVE (NEGATIVE); KETONE, URINE AUTO NEGATIVE (NEGATIVE); LEUKOCYTE ESTERASE, URINE AUTO 1+ (NEGATIVE); MUCUS, URINE SMALL (NEGATIVE); NITRITE, URINE AUTO NEGATIVE (NEGATIVE); PROTEIN, URINE AUTO NEGATIVE (NEGATIVE); RBC, URINE AUTO 10 /HPF (0-3); SPECIFIC GRAVITY URINE AUTO 1.017 (1.002-1.035); SQUAMOUS EPITHELIAL CELL UR AU 2 /HPF (0-6); UROBILINOGEN, URINE AUTO 0.2 mg/dL (0.0-2.0); WBC, URINE AUTO 10 /HPF (0-3)
== END ==
LOC: M SFHCPLAZ 09:59
PROVIDERS: ATTEND Family Medicine
DX: R35.0 Frequency of micturition (principal)

== ENCOUNTER → 2024-12-17 | Outpatient (CLI) | payer MEDICARE, BC ==
[2024-12-17 16:11] LABS: BASO # 0.1 10^3/uL (0.0-0.2); BASO % 0.8 % (0.0-1.0); EOS # 0.4 10^3/uL (0.0-0.5); EOS % 5.3 % (0.0-3.0); LYMPH # 2.2 10^3/uL (1.5-5.0); LYMPH % 32.7 % (24.0-44.0); MONO # 0.6 10^3/uL (0.0-0.8); MONO % 9.4 % (2.0-8.0); NEUTROPHILS # 3.4 10^3/uL (1.5-8.5); NEUTROPHILS % 51.5 % (36.0-66.0); PLATELET COUNT, AUTOMATED 264 10^3/uL (150-450)
[2024-12-17 16:29] LABS: ESTIMATED AVERAGE GLUCOSE 108.0 MG/DL (60-110)
[2024-12-17 16:43] LABS: CREATININE, URINE 162.1 MG/DL; MALB URINE SIEMENS 21.0 MG/L; MAU/CREAT RATIO 12.9 MCG/MG (0.0-30.0)
[2024-12-17 16:44] LABS: ALT/SGPT 21.0 U/L (7.0-40); AST/SGOT 32.0 U/L (<34); CALCIUM LEVEL 9.3 MG/DL (8.3-10.6); CARBON DIOXIDE LEVEL 28.0 MMOL/L (20-31); CHLORIDE LEVEL 107.0 MMOL/L (98-107); CHOLESTEROL LEVEL 184.0 MG/DL (<200); CHOLESTEROL RISK RATIO 3.9 (<5); CREATININE FOR GFR 0.95 MG/DL (0.55-1.30); GLOMERULAR FILTRATION RATE 61.3 (>39); LDL CHOLESTEROL 108.1 MG/DL (<100); NON-HDL-C 136.9 MG/DL; POTASSIUM SERUM 5.1 MMOL/L (3.5-5.1); PTH INTACT 61.5 PG/ML (18.5-88.0); SODIUM LEVEL 143.0 MMOL/L (136-145); TRIGLYCERIDES LEVEL 144.0 MG/DL (<150)
[2024-12-17 16:45] LABS: TOTAL 25(OH) VITAMIN D 112.8 NG/ML (20.0-100.0)
== END ==
LOC: M PLALAB 09:25
PROVIDERS: ATTEND Family Medicine
DX: I50.32 Chronic diastolic (congestive) heart failure (principal); D50.9 Iron deficiency anemia, unspecified; E55.9 Vitamin D deficiency, unspecified; E11.9 Type 2 diabetes mellitus without complications

== ENCOUNTER → 2025-02-23 | Outpatient (CLI) | payer MEDICARE, BC ==
[~2025-02-23] MED LIST changes: -EZET10TA21; +EZET10TA57
== END ==
LOC: M RAD 14:34
PROVIDERS: ATTEND Family Medicine
DX: G31.84 Mild cognitive impairment of uncertain or unknown etiology (principal); R90.82 White matter disease, unspecified; R90.89 Other abnormal findings on diagnostic imaging of central nervous system

== ENCOUNTER → 2025-05-24 | Outpatient (CLI) | payer OTHER, BC, MEDICARE ==
[2025-05-24 13:40] LABS: BASO # 0.1 10^3/uL (0.0-0.2); BASO % 0.7 % (0.0-1.0); EOS # 0.3 10^3/uL (0.0-0.5); EOS % 3.6 % (0.0-3.0); LYMPH # 2.6 10^3/uL (1.5-5.0); LYMPH % 31.2 % (24.0-44.0); MONO # 0.6 10^3/uL (0.0-0.8); MONO % 6.9 % (2.0-8.0); NEUTROPHILS # 4.7 10^3/uL (1.5-8.5); NEUTROPHILS % 57.4 % (36.0-66.0); PLATELET COUNT, AUTOMATED 289 10^3/uL (150-450)
[2025-05-24 13:47] LABS: ALT/SGPT 18.0 U/L (7.0-40); AST/SGOT 29.0 U/L (<34); CALCIUM LEVEL 9.1 MG/DL (8.3-10.6); CARBON DIOXIDE LEVEL 27.0 MMOL/L (20-31); CHLORIDE LEVEL 108.0 MMOL/L (98-107); CHOLESTEROL LEVEL 195.0 MG/DL (<200); CHOLESTEROL RISK RATIO 3.52 (<5); CREATININE FOR GFR 0.9 MG/DL (0.55-1.30); GLOMERULAR FILTRATION RATE 65.4 (>39); LDL CHOLESTEROL 118.3 MG/DL (<100); MAGNESIUM LEVEL 1.9 MG/DL (1.8-2.4); NON-HDL-C 139.7 MG/DL; POTASSIUM SERUM 4.4 MMOL/L (3.5-5.1); PTH INTACT 65.9 PG/ML (18.5-88.0); SODIUM LEVEL 142.0 MMOL/L (136-145); TRIGLYCERIDES LEVEL 107.0 MG/DL (<150); VITAMIN B12 LEVEL 616.0 PG/ML (211-911)
[2025-05-24 13:49] LABS: FREE T4 1.15 NG/DL (0.89-1.76)
[2025-05-24 13:52] LABS: TOTAL 25(OH) VITAMIN D 94.7 NG/ML (20.0-100.0)
[2025-05-24 14:07] LABS: CREATININE, URINE 162.0 MG/DL; ESTIMATED AVERAGE GLUCOSE 114.0 MG/DL (60-110); MALB URINE SIEMENS 15.0 MG/L; MAU/CREAT RATIO 9.2 MCG/MG (0.0-30.0)
[2025-05-27 10:53] LABS: INSULIN LEVEL 5.0 uIU/mL (<=18.4)
[2025-05-28 05:32] LABS: LYME TOTAL ANTIBODY CIA 4.87 Index (<=0.90)
[2025-05-28 08:06] LABS: LYME AB IGG BY CIA 8.01 Index (<=0.90); LYME AB IGM BY CIA 1.46 Index (<=0.90)
== END ==
LOC: M PLALAB 10:20
PROVIDERS: ATTEND Family Medicine
DX: I50.32 Chronic diastolic (congestive) heart failure (principal); D50.9 Iron deficiency anemia, unspecified; G31.84 Mild cognitive impairment of uncertain or unknown etiology; E11.9 Type 2 diabetes mellitus without complications; E78.5 Hyperlipidemia, unspecified; E55.9 Vitamin D deficiency, unspecified